=== PATIENT | female | born 1955 | race Caucasian/White ===

== ENCOUNTER 2017-07-21 21:48 | Emergency (ER) | payer MEDICAID ==
[~2017-07-21] VITALS: Ht 167.6 cm; Wt 77.1 kg
[~2017-07-21 21:48] MED LIST: CIPRO 500MG TA500 MG PO; DIAZEPAM10 MG PO; EFFEXOR XR150 MG PO; LISINOPRIL 10MG10 MG NG; OXAZEPAM 10MG C10 M1 PO; PYRIDIUM 200MG200 MG PO; SEPTRA DS 800 M1 TAB PO; VISTARIL25 M1 PO
[2017-07-21] MEDS ORDERED: ASPIRIN81 MG PO (22:13)
[2017-07-21] MEDS ORDERED: D3-55000 IU PO (22:13)
[2017-07-21] MEDS ORDERED: BUPROPION HCL150 M1 PO (22:14)
[2017-07-21] MEDS ORDERED: DALIRESP500 MCG PO (22:14)
[2017-07-21] MEDS ORDERED: GABAPENTIN300 M1 PO (22:15)
[2017-07-21] MEDS ORDERED: VENTOLIN H0.09 MG/Ac IH (22:15)
[2017-07-21] MEDS ORDERED: BREO ELLIPTA1 POW IH (22:16)
[2017-07-21] MEDS ORDERED: LISINOPRIL10 MG PO (22:16)
[2017-07-21] MEDS ORDERED: SPIRIVA RE2.5 MCG/Ac IH (22:16)
[2017-07-21] MEDS ORDERED: LEVOTHYROXINE0.05 M2 PO (22:17)
[2017-07-21] MEDS ORDERED: DULOXETINE HYDR30 MG PO (22:17)
[2017-07-21] MEDS ORDERED: INDERAL 40MG. T40 MG PO (22:18)
[2017-07-21] MEDS ORDERED: QUETIAPINE FUMA25 M1 PO (22:18)
--- OUTSIDE RECORDS SUMMARY | 2017-07-21 22:22 | External Medical Summary Rpt | CCD ---
Author Author , VALENTIN Organization [facility] Address Unknown Phone Care Team Providers Care Watch Supervisor Name Role Phone SALINAS JAQUAN, SALINAS Unavailable Unavailable JAQUAN SALINAS JAQUAN, SALINAS Unavailable Unavailable JAQUAN [facility] JULIANN MELODY, Unavailable Unavailable JULIANN MELODY ATKINS TRA, ATKINS Unavailable Unavailable TRA ATKINS TRA, ATKINS Unavailable Unavailable TRA [facility] Unavailable Unavailable [facility] TRACI, TRACI Unavailable Unavailable BRANDSER XAVIER, Unavailable Unavailable BRANDSER XAVIER DMITRY MOH, DMITRY MOH Unavailable Unavailable SMITH, SMITH Unavailable Unavailable SMITH BETSY, Unavailable Unavailable SMITH BETSY BUDHANI, BUDHANI Unavailable Unavailable BUDHANI [facility], BUDHANI Unavailable Unavailable IRF KATHERYN DEL, Unavailable Unavailable KATHERYN DEL [facility]available [facility]available [facility] Unavailable Unavailable [facility] JUSTUS J G, JUSTUS J Unavailable Unavailable G JUSTUS J G, JUSTUS J Unavailable Unavailable G JUSTUS SHIRLEY, JUSTUS Unavailable Unavailable SHIRLEY BRE MADI, Unavailable Unavailable BRE MADI BHANU MAT, Unavailable Unavailable BHANU MAT LATA ISABEL, LATA Unavailable Unavailable ISABEL BENSON LATIA, Unavailable Unavailable BENSON LATIA WENDY KEVIN, WENDY KEVIN Unavailable Unavailable [facility] [place] Un[facility] ANNA MELVIN, ANNA Unavailable Unavailable MELVIN FERTIKH CHER, FERTIKH Unavailable Unavailable CHER MARIA FERNANDA DENISA, MARIA FERNANDA Unavailable Unavailable DENISA MARIA FERNANDA DENISA, MARIA FERNANDA Unavailable Unavailable DENISA RADHA LY MD, Unavailable Unavailable ALIYAH NAGEL MD Unavailable Unavailable [facility] Unavailable [facility], [facility] XIOMARA BOZENA, Unavailable Unavailable XIOMARA BOZENA [facility] Unavailable Unavailable [facility], [facility] SIGIFREDO NGUYEN, OD, Unavailable Unavailable [facility], [facility] NGUYEN, OD, PSC LINSEY MAR, LINSEY Unavailable Unavailable MAR KEAGLE RIT, KEAGLE Unavailable Unavailable RIT KEAGLE RIT, KEAGLE Unavailable Unavailable RIT MERLIN, MERLIN Unavailable Unavailable MERLIN CHR, MERLIN [facility]available Unavailable [facility]available [facility] KERSCHNER MAG, Unavailable Unavailable KERSCHNER MAG KLEIMEYER, KLEIMEYER Unavailable Unavailable KUPER REDD, KUPER REDD Unavailable Unavailable KUPER REDD, KUPER REDD Unavailable Unavailable [facility] Unavailable Unavailable [facility] Unavailable Un[facility] Unavailable Unavailable 9, [facility] LUKING DELFIN, LUKING Unavailable Unavailable DELFIN LUKING DELFIN, LUKING Unavailable Unavailable DELFIN EDGARD MELODY, EDGARD Unavailable Unavailable MELODY EDGARD MELODY, EDGARD Unavailable Unavailable MELODY ERIKA LANE, ERIKA ARIANA Unavailable Unavailable MADIE ROMANO MD, Unavailable Unavailable MADIE ROMANO MD, Unavailable Unavailable MADIE ROMANO MD MONTES DE OCA JR ELIO, MONTES DE OCA Unavailable Unavailable JR ELIO JERMAIN GAR, Unavailable Unavailable JERMAIN GAR DEENA, DEENA Unavailable Unavailable DEENA ALLISON, DEENA Unavailable Unavailable ALLISON DEENA ALLISON, DEENA Unavailable Unavailable ALLISON JUANI WESLEY, Unavailable Unavailable JUANI WESLEY [facility], Unavailable Unavailable JM R H JM R [facility], Unavailable Unavailable JM R H NOTA, NOTA Unavailable Unavailable CASTRO ABELARDO ELIDA, Unavailable Unavailable [facility] Un[facility] PETTEY JAM, PETTEY Unavailable Unavailable JAM PETTEY JAM, PETTEY Unavailable Unavailable JAM [facility], Unavailable Unavailable [facility], Unavailable Unavailable [facility] Unavailable [facility] DAVIN CHR, Unavailable Unavailable DAVIN CHR MARIA A CHAVA, Unavailable Unavailable MARIA A CHAVA MARIA A CHAVA, Unavailable Unavailable MARIA A CHAVA ROEBKER JAM, ROEBKER Unavailable Unavailable JAM COLIN MAR, COLIN Unavailable Unavailable MAR SCALF LEI, SCALF LEI Unavailable Unavailable SCALF LEI, SCALF LEI Unavailable Unavailable SCHACK ORTIZ, SCHACK Unavailable Unavailable ORTIZ SCHMITTER SAMUEL, Unavailable Unavailable SCHMITTER SAMUEL THORNTON ALONZO, Unavailable Unavailable THORNTON ALONZO THORNTON ALONZO, Unavailable Unavailable THORNTON ALONZO KHAN CHR, KHAN CHR Unavailable Unavailable KHAN SHA, KHAN SHA Unavailable Unavailable [facility] Un[facility] Un[facility], [facility]available [facility] Unavailable Unavailable MULTIMEDIA AUTHOR ST, [facility]IA AUTHOR [facility] Unavailable Unavailable [facility]ENTER, [facility] Unavailable Unavailable [facility], [facility] LIONEL DAM, LIONEL Unavailable Unavailable DAM LESLIE DANNA, LESLIE Unavailable Unavailable DANNA SONALI LUCÍA, SONALI Unavailable Unavailable LUCÍA VASQUEZ, Unavailable Unavailable WILLEL VASQUEZ Purpose Continuity of Care Document - 12-26-2011 through 2016 Problems Code Diagnosis DOS Provider Status E039 HYPOTHYROID 06-10-2017 ISM [facility] UNSPECIFIED PHYSICIANS G250 ESSENTIAL 06-10-2017 TREMOR [facility] PH[facility] I10 ESSENTIAL 06-10-2017 PRIMARY [facility] HYPERTENSIO PHYSICIANS N J441 CHRONIC 06-10-2017 OBSTRUCTIVE [facility] PULMONARY PHYSICIANS DZ W/EXACERBAT ION Z6829 BODY MASS 06-10-2017 INDEX BMI [facility]ATA 29.0-29.9 PHYSICIANS ADULT E038 OTHER 05-04-2017 SPECIFIED [facility] HYPOTHYROID HEALTHCARE IS [facility] M8580 OTH SPEC 03-17-2017 D/O BONE [facility] DENSITY [facility]ALTHCARE STRUCTURE [facility] SITE D80764 OTHER LONG 03-17-2017 TERM [facility] CURRENT HEALTHCARE DRUG [facility] THERAPY J410 SIMPLE 01-19-2017 CHRONIC [facility] BRONCHITIS MED CTR C23652 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-19-2017 PAYROLL TECHNICIAN EXAM [facility] GENERAL RTN MED CTR W/O ABNORMAL FIND Z122 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-19-2017 [facility]I [facility] NEOPLASM RESPIR ORGANS Z1231 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-19-2017 SCREENING [facility] MAMMO MALIG FT ROB NEOPLASM BREAST E210 PRIMARY 12-25-2016 HYPERPARATH [facility] YROIDISM FT ROB B09249 OTH SPEC 12-25-2016 RADIOLOGY D/O BONE ASSOCIATES DENSITY OF NOT STRUCTURE RT THIGH E559 VITAMIN D 10-22-2016 ST DEFICIENCY [facility] UNSPECIFIED [facility]ALTH[facility]ARE [facility] R7303 PREDIABETES 10-22-2016 [facility] Z124 ENCOUNTER 10-22-2016 ST OTHER [facility] SCREENING HEALTHCARE MALIG EDGE NEOPLASM CERVIX Z31653 ENCOUNTER 10-22-2016 ST FOR [facility] SCREENING HEALTHCARE FOR LIPOID EDGE DISORDERS H6982 OTHER SPEC 10-01-2016 ST DISORDERS [facility] EUSTACHIAN PHYSICIANS TUBE LT EAR L309 DERMATITIS 10-01-2016 ST UNSPECIFIED [facility] PHYSICIANS Z6830 BODY MASS 10-01-2016 ST INDEX BMI MATA 30.0-30.9 PHYSICIANS ADULT B9689 OTH SPEC 09-01-2016 BACTERIAL [facility] AGNT CAUSE PHYSICIANS DZ CLASSIFIED ELSW J0190 ACUTE 09-01-2016 SINUSITIS [facility] UNSPECIFIED PHYSICIANS L719 ROSACEA 07-02-2016 ST UNSPECIFIED [facility] PHYSICIANS R73.03 Prediabetes 05-12-2016 N390 URINARY 04-17-2016 ST TRACT [facility] INFECTION PHYSICIANS SITE NOT SPECIFIED C50995 OTHER 04-17-2016 ST SPECIFIED [facility] URINARY PHYSICIANS INCONTINENC E R3915 URGENCY OF 04-17-2016 ST URINATION [facility] PHYSICIANS Z6832 BODY MASS 04-17-2016 ST INDEX BMI MATA 32.0-32.9 PHYSICIANS ADULT J8410 PULMONARY 02-22-2016 ST FIBROSIS [facility] UNSPECIFIED [facility]ALTHCARE [facility] R911 SOLITARY 02-22-2016 [facility] PULMONARY [facility] NODULE OF NOT Z9049 ACQUIRED 02-22-2016 ST ABSENCE OTH [facility] SPEC PARTS HEALTHCARE DIGESTIVE ED[facility] TRACT Z6833 BODY MASS 02-06-2016 ST INDEX BMI MATA 33.0-33.9 PHYSICIANS ADULT M549 DORSALGIA 01-21-2016 ST UNSPECIFIED [facility] PHYSICIANS R300 DYSURIA 01-21-2016 ST [facility] PHYSICIANS R319 HEMATURIA 01-21-2016 RADIOLOGY UNSPECIFIED ASSOCIATES OF NOT H56814 ACQUIRED 01-21-2016 ST ABSENCE OF M[facility] BOTH CERVIX FT ROB AND UTERUS J020 STREPTOCOCC 10-04-2015 ST AL [facility] PHARYNGITIS PHYSICIANS J029 ACUTE 10-04-2015 ST PHARYNGITIS [facility] PHYSICIANS UNSPECIFIED A499 BACTERIAL 08-14-2015 ST INFECTION [facility] UNSPECIFIED PHYSICIANS L989 DISORDER 08-14-2015 ST THE SKIN & MATA SUBCUTANEOU PHYSICIANS S TISSUE UNS N760 ACUTE 08-14-2015 ST VAGINITIS [facility] PHYSICIANS R69 ILLNESS 06-12-2015 [facility] CAC UNSPECIFIED INC REGION 9 E119 TYPE 2 06-10-2015 PERSONAL DIABETES TOUCH HOME MELLITUS CARE OF WITHOUT COMPLICATIO NS G729 MYOPATHY 06-10-2015 PERSONAL UNSPECIFIED TOUCH HOME CARE OF J449 CHRONIC 06-10-2015 PERSONAL OBSTRUCTIVE TOUCH HOME PULMONARY CARE OF DISEASE UNS R269 UNSPECIFIED 06-10-2015 PERSONAL TOUCH HOME ABNORMALITI CARE OF ES OF GAIT AND MOBILITY Z5189 ENCOUNTER 06-10-2015 PERSONAL FOR OTHER TOUCH HOME SPECIFIED CARE OF AFTERCARE D485 NEOPLASM OF 05-23-2015 [facility] TRA UNCERTAIN BEHAVIOR OF SKIN L089 LOCAL INF 05-23-2015 [facility] SUBCUTANEOU S TISSUE UNS L281 PRURIGO 05-23-2015 [facility] TRA NODULARIS L298 OTHER 05-23-2015 [facility] TRA PRURITUS L689 HYPERTRICHO 05-23-2015 [facility] TRA SIS UNSPECIFIED L821 OTHER 05-23-2015 SCALF LEI SEBORRHEIC KERATOSIS L853 XEROSIS 05-23-2015 [facility] TRA CUTIS 4910 SIMPLE 05-07-2015 CHRONIC [facility] BRONCHITIS PHYSICIANS 13037 ESOPHAGEAL 05-07-2015 ST REFLUX [facility] PHYSICIANS 5849 ACUTE 05-07-2015 ST KIDNEY [facility] FAILURE PHYSICIANS UNSPECIFIED 79761 OTHER 05-07-2015 ABNORMAL [facility] GLUCOSE PHYSICIANS 73757 DIAB W/O 05-05-2015 PERSONAL COMP TYPE TOUCH HOME II/UNS NOT CARE OF STATED UNCNTRL 3599 UNSPECIFIED 05-05-2015 PERSONAL MYOPATHY TOUCH HOME CARE OF 4019 UNSPECIFIED 05-05-2015 PERSONAL ESSENTIAL TOUCH HOME HYPERTENSIO CARE OF N 496 CHRONIC 05-05-2015 PERSONAL AIRWAY TOUCH HOME OBSTRUCTION CARE OF NEC 7812 ABNORMALITY 05-05-2015 PERSONAL OF GAIT TOUCH HOME CARE OF V571 OTHER 05-05-2015 PERSONAL [place] [address] OBSTRUCTIVE 05-01-2015 INTERNAL CHRONIC MEDICINE OF BRONCHITIS [place]ACERBATIO N 89857 SLOW 05-01-2015 INTERNAL TRANSIT MEDICINE OF [facility] N 2449 UNSPECIFIED 04-24-2015 ST [place] HYPOTHYROID PHYSICIANS ISM 47339 ACUTE 04-24-2015 ST BRONCHIOLIT MATA IS DUE OTH PHYSICIANS INFECTIOUS ORGANISMS 66241 CHEST PAIN 04-23-2015 [facility] UNSPECIFIED [facility] 58596 OTHER CHEST 04-23-2015 ST PAIN [facility] PHYSICIANS I10 Essential 04-22-2015 (primary) hypertensio n E03.8 Other 04-18-2015 specified hypothyroid ism 29695 LEUKOCYTOSI 04-18-2015 ST S [facility] UNSPECIFIED MED CTR MULTIMEDIA AUTHOR ST 4139 OTHER AND 04-18-2015 ST UNSPECIFIED [facility] ANGINA MED CTR MULTIMEDIA AUTHOR [address] [address] 69894 JAW PAIN 04-18-2015 ST [facility] [place] [facility] 78807 SHORTNESS 04-18-2015 ST OF BREATH [facility] PHYSICIANS 08536 OTHER 04-18-2015 ST DYSPNEA [place] [address] HYPOXEMIA 04-18-2015 ST [facility] PHYSICIANS 1330 SCABIES 04-04-2015 ST [facility] PHYSICIANS 2448 OTHER 03-19-2015 ST SPECIFIED [facility] ACQUIRED MED CTR MULTIMEDIA AUTHOR HYPOTHYROID ST ISM 2468 OTHER 03-19-2015 ST SPECIFIED [facility] DISORDERS MED CTR MULTIMEDIA AUTHOR OF THYROID ST 2689 UNSPECIFIED 02-19-2015 ST VITAMIN D [facility] DEFICIENCY PHYSICIANS 4770 ALLERGIC 02-19-2015 ST RHINITIS MATA DUE TO PHYSICIANS POLLEN 490 BRONCHITIS 02-19-2015 ST NOT [facility] SPECIFIED PHYSICIANS ACUTE OR CHRONIC 7231 CERVICALGIA 12-12-2014 [facility] 7241 PAIN IN 12-12-2014 [facility] THORACIC [facility]OP[facility] SPINE C CENTER 7248 OTHER 12-12-2014 VAN SYMPTOMS CHIROPRACTI REFERABLE C CENTER TO BACK 0817 NONALLOPATH 12-12-2014 VAN IC LESION CHIROPRACTI OF CERVICAL C CENTER REGION NEC 0539 HERPES 11-24-2014 ST ZOSTER [facility] WITHOUT PHYSICIANS MENTION OF COMPLICATIO N 6829 CELLULITIS 11-24-2014 ST AND ABSCESS M[facility] OF PHYSICIANS UNSPECIFIED SITE V4981 ASYMPTOMATI 10-20-2014 RADIOLOGY C [facility]OC[facility]ATES [facility] TIARA STATUS 4739 UNSPECIFIED 10-09-2014 ST SINUSITIS [facility] PHYSICIANS 5990 URINARY 10-09-2014 ST TRACT [facility] INFECTION PHYSICIANS SITE NOT SPECIFIED E55.9 Vitamin D 09-26-2014 deficiency, unspecified 24267 OBESITY, 09-22-2014 ST UNSPECIFIED [facility] MED CTR MULTIMEDIA AUTHOR ST 3331 ESSENTIAL 09-22-2014 ST AND OTHER [facility] SPECIFIED PHYSICIANS FORMS OF [place] 7802 SYNCOPE AND 09-22-2014 ST COLLAPSE [facility] PHYSICIANS V700 ROUTINE 09-22-2014 GENERAL [facility] MEDICAL PHYSICIANS EXAM@HEALTH CARE FACL 75941 OTHER 09-20-2014 ST SPECIFIED [facility] CARDIAC PHYSICIANS DYSRHYTHMIA S 7245 UNSPECIFIED 09-20-2014 ST BACKACHE [facility] PHYSICIANS G89.29 Other 09-18-2014 chronic pain J41.0 Simple 09-18-2014 chronic bronchitis J43.9 Emphysema, 09-18-2014 unspecified J44.1 Chronic 09-18-2014 obstructive pulmonary disease with (acute) exacerbatio n M54.5 Low back 09-18-2014 pain 46766 OTHER 09-17-2014 ST CHRONIC [facility] PAIN MED [place] 10443 OTHER 09-17-2014 [place] [facility] [place] [address] PRECORDIAL 09-17-2014 ST PAIN [facility] MED CTR MULTIMEDIA AUTHOR ST F41.8 Other 09-15-2014 specified anxiety disorders G25.0 Essential 09-15-2014 tremor 27359 PAIN IN 09-07-2014 [facility], PAIN & LOWER LEG SPINE INSTIT 7202 SACROILIITI 08-30-2014 [facility] S NOT PAIN & ELSEWHERE SPINE CLASSIFIED INSTIT 7213 LUMBOSACRAL 08-22-2014 [facility] & SPONDYLOSIS SPINE WITHOUT INSTIT MYELOPATHY 7210 CERVICAL 07-25-2014 [facility] SPONDYLOSIS PAIN & WITHOUT SPINE MYELOPATHY INSTIT 7244 THORACIC/EBER 07-14-2014 [facility] MBOSACRAL [facility] NEURITIS/RA C CENTER DICULITIS UNSPEC 7282 MUSCULAR 07-14-2014 [facility] DISUSE C CENTER ATROPHY NEC 8460 SPRAIN AND 07-14-2014 [facility] STRAIN OF CHIROPRACTI LUMBOSACRAL C CENTER 8470 NECK SPRAIN 07-14-2014 [facility]OPRA[facility] C CENTER 4589 UNSPECIFIED 07-13-2014 [facility] HYPOTENSION 6256 FEMALE 07-13-2014 RADHA LY MD INCONTINENC E 6272 SYMPTOMATIC 07-13-2014 RADHA LY MD MENOPAUSAL/ FEMALE CLIMACTERIC STATES 48569 OTHER 07-13-2014 [place] SPECIFIED MEDICAL DISORDERS IMAGING ASS OF LOWER LEG JOINT V0481 NEED 07-13-2014 [facility] PROPHYLACTI [facility] C VACCINATION &INOCULATIO N FLU 4660 ACUTE 06-20-2014 [facility] BRONCHITIS [facility] 6273 POSTMENOPAU 06-15-2014 RADHA Dillon TIARA ALIYAH ABDUL ATROPHIC VAGINITIS V7231 ROUTINE 06-15-2014 RADHA Dillon GYNECOLOGIC ALIYAH ABDUL AL EXAMINATION V7641 SCREENING 06-15-2014 RADHA LY MD MALIGNANT NEOPLASM OF THE RECTUM 30852 PREPATELLAR 04-28-2014 [facility] BURSITIS [facility] 7810 ABNORMAL 04-28-2014 [facility] INVOLUNTARY [facility] MOVEMENTS 37295 OTHER 04-20-2014 [facility] SPECIFIED ASSOCIATES TYPES OF CYSTITIS 1122 CANDIDIASIS 04-14-2014 [facility] RIT OF OTHER UROGENITAL SITES 7881 DYSURIA 04-14-2014 [facility] 0088 INTESTINAL 10-19-2013 [facility] INFECTION DUE TO OTHER ORGANISM NEC 51152 VERTIGO 10-19-2013 [facility] LATE EFFECT CEREBROVASC ULAR DISEASE 463 ACUTE 10-07-2013 JUSTUS Godwin TONSILLITIS 39089 MASTODYNIA 09-22-2013 MARIA A CHAVA 80660 LUMP OR 09-22-2013 ST MASS IN [facility] BREAST MED CTR MULTIMEDIA AUTHOR ST 7822 LOCALIZED 09-22-2013 ST SUPERFICIAL [facility] SWELLING MED CTR MULTIMEDIA AUTHOR MASS OR ST [facility] 12657 INCONCLUSIV 09-22-2013 ST E MAMMOGRAM [facility] CTR MULTIMEDIA AUTHOR ST 7242 LUMBAGO 09-20-2013 [facility] 460 ACUTE 07-01-2013 [facility] NASOPHARYNG [facility] ITIS 4400 ATHEROSCLER 06-11-2013 BRE OSIS OF MADI AORTA 7218 OTHER 06-11-2013 BRE ALLIED MADI DISORDERS OF SPINE 01283 OSTEOARTHRO 12-23-2012 PETTEY JAM SIS UNSPEC WHETHER GEN/LOC LOWER LEG 7177 CHONDROMALA 11-30-2012 PETTEY JAM DIXON OF [place] 08905 PLICA 11-30-2012 PETTEY JAM SYNDROME 89062 AFTER-CATAR 11-22-2012 THORNTON ACT, ALONZO OBSCURING VISION 20937 DISORDER OF 11-03-2012 [facility] CARTILAGE [facility] UNSPECIFIED CENTER 3674 PRESBYOPIA 10-05-2012 SIGIFREDO NGUYEN, OD, PSC 5952 OTHER 10-05-2012 SALINAS JAQUAN CHRONIC CYSTITIS 5989 UNSPECIFIED 10-05-2012 SALINAS JAQUAN URETHRAL STRICTURE 21650 UNSPECIFIED 09-14-2012 [facility] 4619 ACUTE 09-07-2012 JM R SINUSITIS, H UNSPECIFIED 94527 UNSPECIFIED 05-14-2012 MADIE [place] N 59722 DYSPHAGIA 05-14-2012 MADIE UNSPECIFIED ROSALINA ABDUL 73452 ABDOMINAL 05-14-2012 MADIE PAIN OTHER ROSALINA ABDUL SPECIFIED SITE V1272 PERSONAL 04-18-2012 MADIE HISTORY OF ROSALINA ABDUL COLONIC POLYPS 57524 OTHER 04-17-2012 MADIE ESOPHAGITIS ROSALINA ABDUL 69640 OTHER SPEC 04-17-2012 MADIE GASTRITIS ROSALINA ABDUL WITHOUT MENTION HEMORRHAGE 5589 OTH&UNSPEC 04-17-2012 MADIE NONINFECTIO ROSALINA ABDUL US GASTROENTER ITIS&COLITI S 82575 UNSPECIFIED 04-16-2012 [facility] ESOPHAGITIS [facility] 97226 UNS 04-16-2012 GASTRITIS&G LOCH [place] ASTRODUODIT [facility] IS W/O CENTER MENTION HEMORR 45978 DIVERTICULO 04-16-2012 [facility] COLON [facility] 5641 IRRITABLE 04-16-2012 [facility]OWEL [facility] [place] SYNDROME [facility] 67303 LOSS OF 04-16-2012 KUPER REDD WEIGHT 86958 ABDOMINAL 04-16-2012 KUPER REDD PAIN, UNSPECIFIED SITE 5601 PARALYTIC 04-15-2012 DEENA ALLISON ILEUS 6259 UNSPEC 04-15-2012 DEENA ALLISON SYMPTOM ASSOC W/FEMALE GENITAL ORGANS 03549 ABDOMINAL 04-15-2012 DEENA COOPER PAIN, GENERALIZED 5959 UNSPECIFIED 12-26-2011 MARIA FERNANDA DENISA CYSTITIS 79331 NONSPECIFIC 12-26-2011 MARIA FERNANDA DENISA ABNORMAL ELECTROCARD IOGRAM B96.89 Other specified bacterial agents as the cause of diseases classified elsewhere D22.9 Melanocytic nevi, unspecified E21.0 Primary hyperparath yroidism J01.90 Acute sinusitis, unspecified J44.9 Chronic obstructive pulmonary disease, unspecified L71.9 Rosacea, unspecified L82.1 Other seborrheic keratosis M85.80 Other specified disorders of bone density and structure, unspecified site N39.0 Urinary tract infection, site not specified N39.498 Other specified urinary incontinenc e R13.10 Dysphagia, unspecified R39.15 Urgency of urination Z01.419 Encounter for gynecologic al examination (general) (routine) without abnormal findings Z12.31 Encounter for screening mammogram for malignant neoplasm of breast Z87.19 Personal history of other diseases of the digestive system Allergies, Adverse Reactions, Alerts Clinical Alert Notifications Alert Diabetes: no A1C in the last 6 months Diabetes: no eye exam in the last 365 days Diabetes: no influenza vaccine in the last 365 days Diabetes: no urine protein screening in the last 365 days Medications Na ND Rx Da Fi Fi Am Da Di Ph RX Ph St me C No te ll ll ou ys ag ar # ys at rm s nt no ma ic us Or Da si cy ia de te s n re d AZ 50 11 12 6. 5 00 TO Ac IT 11 -0 -0 00 00 TA ti HR 10 1- 8- 0 00 L ve OM 78 20 20 96 CA YC 75 17 17 70 RE IN 1 90 PH 25 AR 0 MA MG CY TA #5 BL ET MD 23 11 12 60 30 00 TO Ac OP 15 -0 -0 .0 00 TA ti RA 50 1- 8- 00 00 L ve NO 11 20 20 96 CA LO 20 17 17 70 RE L 1 91 40 PH AR MG MA CY TA BL #5 ET 00 11 12 30 30 00 TO Ac PI 90 -0 -0 .0 00 TA ti RI 46 2- 8- 00 00 L ve N 28 20 20 94 CA 81 88 17 17 46 RE 9 10 MG PH AR CH MA EW CY AB LE #5 TA BL ET BU 00 10 12 30 30 00 TO Ac MD 59 -2 -0 .0 00 TA ti OP 13 7- 1- 00 00 L ve IO 54 20 20 95 CA N 12 17 17 62 RE HC 5 16 L PH SR AR MA 15 CY 0 MG #5 TA BL ET LI 00 10 12 30 30 00 TO Ac SI 18 -2 -0 .0 00 TA ti NO 50 7- 1- 00 00 L ve MD 61 20 20 96 CA IL 01 17 17 66 RE 0 12 10 PH AR MG MA CY TA BL #5 ET 00 10 11 30 30 00 TO PI 90 -0 -1 .0 00 TA ti RI 46 3- 0- 00 00 L ve N 28 20 20 94 CA 81 88 17 17 46 RE 9 10 MG PH AR CH MA EW CY AB LE #5 TA BL ET LE 00 10 11 30 30 00 TO VO 37 -1 -1 .0 00 TA ti TH 81 9- 0- 00 00 L ve YR 80 20 20 96 CA OX 31 17 17 58 RE IN 0 19 E PH 50 AR MA MC CY G TA #5 BL ET DU 31 10 11 30 30 00 TO LO 72 -1 -1 .0 00 TA ti XE 20 6- 0- 00 00 L ve TI 58 20 20 96 CA NE 23 17 17 22 RE 0 93 HC PH L AR [address] MA CY 30 #5 MG CA P 00 10 11 30 30 00 TO TA 90 -1 -1 .0 00 TA ti MA 45 0- 0- 00 00 L ve N 98 20 20 95 CA D3 66 17 17 84 RE 0 19 5, PH 00 AR 0 MA UN CY IT #5 CA PS UL E DA 00 10 11 30 30 00 TO LI 31 -0 -1 .0 00 TA ti RE 00 6- 0- 00 00 L ve SP 09 20 20 96 CA 53 17 17 45 RE 50 0 50 0 PH MC AR G MA TA CY BL ET #5 LI 00 09 10 30 30 00 TO SI 37 -2 -2 .0 00 TA ti NO 82 6- 0- 00 00 L ve MD 07 20 20 94 CA IL 41 17 17 46 RE 0 09 10 PH AR MG MA CY TA BL #5 ET BU 00 09 10 30 30 00 TO MD 18 -2 -2 .0 00 TA ti OP 50 7- 0- 00 00 L ve IO 41 20 20 95 CA N 55 17 17 62 RE HC 2 16 L PH SR AR MA 15 CY 0 MG #5 TA BL ET FL 70 09 10 0. 1 00 TO UC 46 -1 -1 50 00 TA ti EL 10 9- 3- 0 00 L ve VA 20 20 20 96 CA X 10 17 17 26 RE QU 1 00 AD PH AR 20 MA 17 CY -2 01 #5 8 SY R CONCEPCION 58 09 10 0. 1 00 TO OS 16 -1 -1 50 00 TA ti TR 00 9- 3- 0 00 L ve IX 84 20 20 96 CA 25 17 17 26 RE TD 2 05 AP PH AR VA MA CC CY IN E #5 SY RI NG E 00 09 10 30 30 00 TO Ac TA 90 -1 -0 .0 00 TA ti MA 45 1- 6- 00 00 L ve N 98 20 20 95 CA D3 66 17 17 84 RE 0 19 5, PH 00 AR 0 MA UN CY IT #5 CA PS UL E AZ 50 09 10 6. 5 00 TO Ac IT 11 -1 -0 00 00 TA ti HR 10 3- 6- 0 00 L ve OM 78 20 20 96 CA YC 75 17 17 19 RE IN 1 96 PH 25 AR 0 MA MG CY TA #5 BL ET LE 00 09 10 30 30 00 TO VO 37 -1 -0 .0 00 TA ti TH 81 5- 6- 00 00 L ve YR 80 20 20 96 CA OX 31 17 17 23 RE IN 0 41 E PH 50 AR MA MC CY G TA #5 BL ET DU 51 09 10 30 30 00 TO LO 99 -1 -0 .0 00 TA ti XE 10 5- 6- 00 00 L ve TI 74 20 20 96 CA NE 71 17 17 22 RE 0 [address] HC PH L AR [address] MA CY 30 #5 MG CA P MD 23 09 10 60 30 00 TO OP 15 -1 -0 .0 00 TA ti RA 50 5- 6- 00 00 L ve NO 11 20 20 95 CA LO 10 17 17 64 RE L 1 63 20 PH AR MG MA CY TA BL #5 ET DA 00 09 09 30 30 00 TO Ac LI 31 -0 -2 .0 00 TA ti RE 00 7- 9- 00 00 L ve SP 09 20 20 95 CA 53 17 17 84 RE 50 0 20 0 PH MC AR G MA TA CY BL ET #5 LI 00 08 09 30 30 00 TO Ac SI 37 -2 -2 .0 00 TA ti NO 82 8- 2- 00 00 L ve MD 07 20 20 94 CA IL 41 17 17 46 RE 0 09 10 PH AR MG MA CY TA BL #5 ET 00 08 09 30 30 00 TO Ac PI 90 -2 -2 .0 00 TA ti RI 46 9- 2- 00 00 L ve N 28 20 20 94 CA 81 88 17 17 46 RE 9 10 MG PH AR CH MA EW CY AB LE #5 TA BL ET BU 00 03 18 30 30 00 TO Ac MD 18 -2 -1 .0 00 TA ti OP 50 4- 5- 00 00 L ve IO 41 20 20 95 CA N 55 17 17 62 RE HC 2 16 L PH SR AR MA 15 CY 0 MG #5 TA BL ET FL 50 03 18 30 30 00 TO Ac UO 11 -1 -0 .0 00 TA ti XE 10 4- 8- 00 00 L ve TI 64 20 20 95 CA NE 80 17 17 62 RE 3 18 HC PH L AR 20 MA CY MG #5 CA PS UL E 00 03 18 30 30 00 TO Ac TA 90 -0 -0 .0 00 TA ti MA 45 9- 1- 00 00 L ve N 98 20 20 95 CA D3 66 17 17 84 RE 0 19 5, PH 00 AR 0 MA UN CY IT #5 CA PS UL E LE 00 03 18 30 30 00 TO VO 37 -1 -0 .0 00 TA ti TH 81 1- 1- 00 00 L ve YR 80 20 20 95 CA OX 31 17 17 87 RE IN 0 90 E PH 50 AR MA MC CY G TA #5 BL ET DA 00 03 18 30 30 00 TO LI 31 -0 -0 .0 00 TA ti RE 00 9- 1- 00 00 L ve SP 09 20 20 95 CA 53 17 17 84 RE 50 0 20 0 PH MC AR G MA TA CY BL ET #5 QU 16 02 14 30 30 00 TO ET 71 -1 -1 .0 00 TA ti IA 40 7- 8- 00 00 L ve PI 45 20 20 95 CA NE 20 17 17 62 RE 1 17 FU PH MA AR RA MA TE CY 25 #5 MG TA B FL 50 02 14 30 30 00 TO Ac UO 11 -1 -1 .0 00 TA ti XE 10 7- 8- 00 00 L ve TI 64 20 20 95 CA NE 80 17 17 62 RE 3 18 HC PH L AR 20 MA CY MG #5 CA PS UL E LI 00 02 14 30 30 00 TO Ac SI 18 -1 -1 .0 00 TA ti NO 50 9- 8- 00 00 L ve MD 61 20 20 94 CA IL 01 17 17 46 RE 0 09 10 PH AR MG MA CY TA BL #5 ET BU 60 07 08 60 30 00 TO Ac MD 50 -1 -1 .0 00 TA ti OP 50 9- 8- 00 00 L ve IO 15 20 20 94 CA N 70 17 17 75 RE HC 1 75 L PH 10 AR 0 MA MG CY TA #5 BL ET MD 00 07 08 60 30 00 TO Ac OP 37 -1 -1 .0 00 TA ti RA 80 9- 8- 00 00 L ve NO 18 20 20 95 CA LO 30 17 17 64 RE L 1 63 20 PH AR MG MA CY TA BL #5 ET 00 08 30 30 00 TO Ac PI 90 -1 -0 .0 00 TA ti RI 46 0- 4- 00 00 L ve N 28 20 20 94 CA 81 88 17 17 46 RE 9 10 MG PH AR CH MA EW CY AB LE #5 TA BL ET LE 00 07 08 30 30 00 TO Ac VO 37 -1 -0 .0 00 TA ti TH 81 0- 4- 00 00 L ve YR 80 20 20 95 CA OX 31 17 17 56 RE IN 0 50 E PH 50 AR MA MC CY G TA #5 BL ET DU 51 07 30 30 00 TO Ac LO 99 -0 -2 .0 00 TA ti XE 10 6- 8- 00 00 L ve TI 74 20 20 93 CA NE 69 17 17 19 RE 0 86 HC PH L AR [address] MA CY 20 #5 MG CA P DA 00 02 13 30 30 00 TO Ac LI 31 -0 -2 .0 00 TA ti RE 00 6- 8- 00 00 L ve SP 09 20 20 95 CA 53 17 17 25 RE 50 0 71 0 PH MC AR G MA TA CY BL ET #5 00 01 14 30 30 00 TO Ac TA 90 -1 -1 .0 00 TA ti MA 45 9- 4- 00 00 L ve N 98 20 20 94 CA D3 66 17 17 37 RE 0 41 5, PH 00 AR 0 MA UN CY IT #5 CA PS UL E BU 60 01 14 60 30 00 TO Ac MD 50 -1 -1 .0 00 TA ti OP 50 9- 4- 00 00 L ve IO 15 20 20 94 CA N 70 17 17 75 RE HC 1 75 L PH 10 AR 0 MA MG CY TA #5 BL ET LI 00 01 14 30 30 00 TO Ac SI 18 -2 -1 .0 00 TA ti NO 50 2- 4- 00 00 L ve MD 61 20 20 94 CA IL 01 17 17 46 RE 0 09 10 PH AR MG MA CY TA BL #5 ET DA 00 01 14 30 30 00 TO Ac LI 31 -0 -0 .0 00 TA ti RE 00 7- 7- 00 00 L ve SP 09 20 20 95 CA 53 17 17 25 RE 50 0 71 0 PH MC AR G MA TA CY BL ET #5 DU 51 01 14 30 30 00 TO LO 99 -0 -0 .0 00 TA ti XE 10 6- 7- 00 00 L ve TI 74 20 20 93 CA NE 69 17 17 19 RE 0 [address] HC PH L AR [address] MA CY 20 #5 MG CA P 00 01 14 30 30 00 TO Ac PI 90 -1 -0 .0 00 TA ti RI 46 2- 7- 00 00 L ve N 28 20 20 94 CA 81 88 17 17 46 RE 9 10 MG PH AR CH MA EW CY AB LE #5 TA BL ET LE 00 01 14 30 30 00 TO VO 37 -1 -0 .0 00 TA ti TH 81 2- 7- 00 00 L ve YR 80 20 20 95 CA OX 31 17 17 29 RE IN 0 24 E PH 50 AR MA MC CY G TA #5 BL ET AL 16 05 06 4. 28 00 TO EN 71 -2 -1 [address] 40 2- 6- 0 00 L ve ON 63 20 20 95 CA AT 30 17 17 11 RE E 1 81 SO PH DI AR UM MA CY 70 #5 MG TA B 00 12 13 30 30 00 TO TA 90 -2 -1 .0 00 TA ti MA 45 3- 6- 00 00 L ve N 98 20 20 94 CA D3 66 17 17 37 RE 0 41 5, PH 00 AR 0 MA UN CY IT #5 CA PS UL E LI 00 12 13 30 30 00 TO SI 18 -2 -1 .0 00 TA ti NO 50 3- 6- 00 00 L ve MD 61 20 20 94 CA IL 01 17 17 46 RE 0 09 10 PH AR MG MA CY TA BL #5 ET ME 23 05 60 30 00 TO Ac TF 15 -2 -1 .0 00 TA ti OR 50 4- 6- 00 00 L ve MA 10 20 20 93 CA N 21 17 17 30 RE HC 0 98 L PH 50 AR 0 MA MG CY TA #5 BL ET MD 00 05 06 60 30 00 TO Ac OP 37 -1 -0 .0 00 TA ti RA 80 5- 9- 00 00 L ve NO 18 20 20 95 CA LO 30 17 17 05 RE L 1 50 20 PH AR MG MA CY TA BL #5 ET 00 05 06 30 30 00 TO Ac PI 90 -1 -0 .0 00 TA ti RI 46 0- 2- 00 00 L ve N 28 20 20 94 CA 81 88 17 17 46 RE 9 10 MG PH AR CH MA EW CY AB LE #5 TA BL ET LE 00 05 02 06 30 00 TO Ac VO 37 -1 -0 .0 00 TA ti TH 81 0- 2- 00 00 L ve YR 80 20 20 95 CA OX 31 17 17 01 RE IN 0 38 E PH 50 AR MA MC CY G TA #5 BL ET DU 51 05 01 06 30 00 TO Ac LO 99 -0 -2 .0 00 TA ti XE 10 5- 6- 00 00 L ve TI 74 20 20 93 CA NE 69 17 17 96 RE 0 05 HC PH L AR DR MA CY 20 #5 MG CA P DA 00 05 01 06 30 00 TO Ac LI 31 -0 -2 .0 00 TA ti RE 00 5- 6- 00 00 L ve SP 09 20 20 94 CA 53 17 17 66 RE 50 0 60 0 PH MC AR G MA TA CY BL ET #5 00 04 01 06 30 00 TO Ac TA 90 -2 -1 .0 00 TA ti MA 45 5- 9- 00 00 L ve N 98 20 20 94 CA D3 66 17 17 37 RE 0 41 5, PH 00 AR 0 MA UN CY IT #5 CA PS UL E LI 00 04 01 06 30 00 TO SI 18 -2 -1 .0 00 TA ti NO 50 5- 9- 00 00 L ve MD 61 20 20 94 CA IL 01 17 17 46 RE 0 09 10 PH AR MG MA CY TA BL #5 ET GA 16 04 12 31 30 00 TO Ac BA 71 -2 -1 0. 00 TA ti PE 40 5- 9- 00 00 L ve NT 50 20 20 0 94 CA IN 40 17 17 86 RE 2 24 30 PH 0 AR MG MA CY CA PS #5 UL E DA 00 04 01 06 30 00 TO Ac LI 31 -0 -0 .0 00 TA ti RE 00 4- 5- 00 00 L ve SP 09 20 20 94 CA 53 17 17 66 RE 50 0 60 0 PH MC AR G MA TA CY BL ET #5 DU 51 04 01 06 30 00 TO Ac LO 99 -0 -0 .0 00 TA ti XE 10 4- 5- 00 00 L ve TI 74 20 20 93 CA NE 69 17 17 96 RE 0 05 HC PH L AR DR MA CY 20 #5 MG CA P LE 00 04 05 30 30 00 TO Ac VO 37 -0 -0 .0 00 TA ti TH 81 4- 5- 00 00 L ve YR 80 20 20 94 CA OX 31 17 17 66 RE IN 0 61 E PH 50 AR MA MC CY G TA #5 BL ET LI 00 03 05 30 30 00 TO Ac SI 18 -2 -0 .0 00 TA ti NO 50 7- 5- 00 00 L ve MD 61 20 20 94 CA IL 01 17 17 24 RE 0 31 10 PH AR MG MA CY TA BL #5 ET BU 00 04 05 60 30 00 TO Ac MD 78 -1 -0 .0 00 TA ti OP 11 4- 5- 00 00 L ve IO 06 20 20 94 CA N 40 17 17 75 RE HC 1 75 L PH 10 AR 0 MA MG CY TA #5 BL ET 00 04 05 30 30 00 TO Ac PI 90 -1 -0 .0 00 TA ti RI 46 1- 5- 00 00 L ve N 28 20 20 94 CA 81 88 17 17 46 RE 9 10 MG PH AR CH MA EW CY AB LE #5 TA BL ET ME 23 03 04 60 30 00 TO Ac TF 15 -2 -1 .0 00 TA ti OR 50 3- 4- 00 00 L ve MA 10 20 20 93 CA N 21 17 17 30 RE HC 0 98 L PH 50 AR 0 MA MG CY TA #5 BL ET BR 00 03 04 60 30 00 TO Ac EO 17 -1 -0 .0 00 TA ti 30 5- 7- 00 00 L ve EL 85 20 20 94 CA LI 91 17 17 46 RE PT 0 06 A PH 10 AR 0- MA 25 CY MC #5 G IN H MD 00 03 04 60 30 00 TO Ac OP 37 -1 -0 .0 00 TA ti RA 80 5- 7- 00 00 L ve NO 18 20 20 94 CA LO 30 17 17 46 RE L 1 07 20 PH AR MG MA CY TA BL #5 ET VE 00 03 04 18 25 00 TO Ac NT 17 -1 -0 .0 00 TA ti OL 30 5- 7- 00 00 L ve IN 68 20 20 94 CA 22 17 17 46 RE HF 0 08 A PH 90 AR MA MC CY G IN #5 MIRANDA LE R 00 03 04 30 30 00 TO Ac PI 90 -1 -0 .0 00 TA ti RI 46 5- 7- 00 00 L ve N 28 20 20 94 CA 81 88 17 17 46 RE 9 10 MG PH AR CH MA EW CY AB LE #5 TA BL ET MO 16 03 04 30 30 00 TO NT 72 -1 -0 .0 00 TA ti EL 90 5- 7- 00 00 L ve UK 11 20 20 94 CA 91 17 17 46 RE T 5 11 SO PH D AR 10 MA CY MG #5 TA BL ET DA 00 03 03 30 30 00 TO Ac LI 31 -0 -3 .0 00 TA ti RE 00 6- 1- 00 00 L ve SP 09 20 20 94 CA 53 17 17 06 RE 50 0 81 0 PH MC AR G MA TA CY BL ET #5 DU 13 03 03 30 30 00 TO LO 66 -0 -3 .0 00 TA ti XE 80 6- 1- 00 00 L ve TI 10 20 20 93 CA NE 96 17 17 96 RE 0 05 HC PH L AR DR MA CY 20 #5 MG CA P LE 00 03 03 30 30 00 TO VO 37 -0 -2 .0 00 TA ti TH 81 3- 4- 00 00 L ve YR 80 20 20 94 CA OX 31 17 17 33 RE IN 0 99 E PH 50 AR MA MC CY G TA #5 BL ET TR 00 02 03 80 30 00 TO IA 16 -2 -1 .0 00 TA ti MC 80 2- 7- 00 00 L ve IN 00 20 20 94 CA OL 48 17 17 23 RE ON 0 63 E PH 0. AR 1% MA CY CR EA #5 M LI 00 02 03 30 30 00 TO SI 18 -2 -1 .0 00 TA ti NO 50 3- 7- 00 00 L ve MD 61 20 20 94 CA IL 01 17 17 24 RE 0 31 10 PH AR MG MA CY TA BL #5 ET LO 16 02 03 30 30 00 TO Ac RA 71 -2 -1 .0 00 TA ti TA 40 2- 7- 00 00 L ve DI 48 20 20 94 CA NE 20 17 17 23 RE 3 62 10 PH AR MG MA CY TA BL #5 ET 00 02 03 30 30 00 TO Ac TA 90 -0 -1 .0 00 TA ti MA 45 6- 0- 00 00 L ve N 98 20 20 93 CA D3 66 17 17 48 RE 0 02 5, PH 00 AR 0 MA UN CY IT #5 CA PS UL E DA 00 02 03 30 30 00 TO Ac LI 31 -0 -1 .0 00 TA ti RE 00 6- 0- 00 00 L ve SP 09 20 20 94 CA 53 17 17 06 RE 50 0 81 0 PH MC AR G MA TA CY BL ET #5 BU 00 02 03 60 30 00 TO MD 78 -1 -1 .0 00 TA ti OP 11 3- 0- 00 00 L ve IO 06 20 20 92 CA N 40 17 17 94 RE HC 1 92 L PH 10 AR 0 MA MG CY TA #5 BL ET DO 49 02 03 30 30 00 TO XY 88 -0 -1 .0 00 TA ti CY 40 3- 0- 00 00 L ve CL 72 20 20 94 CA IN 70 17 17 05 RE E 3 68 MO PH NO AR MA 10 CY 0 MG #5 CA P DU 57 01 02 30 30 00 TO LO 23 -3 -2 .0 00 TA ti XE 70 0- 4- 00 00 L ve TI 01 20 20 93 CA NE 76 17 17 96 RE 0 05 HC PH L AR DR MA CY 20 #5 MG CA P LE 00 02 02 30 30 00 TO VO 37 -0 -2 .0 00 TA ti TH 81 1- 4- 00 00 L ve YR 80 20 20 93 CA OX 31 17 17 39 RE IN 0 53 E PH 50 AR MA MC CY G TA #5 BL ET GA 16 02 02 24 30 00 TO BA 71 -0 -2 0. 00 TA ti PE 40 1- 4- 00 00 L ve NT 50 20 20 0 94 CA IN 40 17 17 03 RE 2 29 30 PH 0 AR MG MA CY CA PS #5 UL E QU 16 01 02 30 30 00 TO ET 71 -2 -1 .0 00 TA ti IA 40 5- 7- 00 00 L ve PI 45 20 20 93 CA NE 20 17 17 96 RE 1 06 FU PH MA AR RA MA TE CY 25 #5 MG TA B MD 00 01 02 60 30 00 TO OP 37 -1 -1 .0 00 TA ti RA 80 8- 7- 00 00 L ve NO 18 20 20 92 CA LO 20 17 17 73 RE L 1 37 10 PH AR MG MA CY TA BL #5 ET ME 23 01 02 60 30 00 TO TF 15 -1 -1 .0 00 TA ti OR 50 8- 7- 00 00 L ve MA 10 20 20 93 CA N 21 17 17 30 RE HC 0 98 L PH 50 AR 0 MA MG CY TA #5 BL ET LI 00 01 02 30 30 00 TO Ac SI 18 -1 -1 .0 00 TA ti NO 50 6- 7- 00 00 L ve MD 61 20 20 93 CA IL 01 17 17 55 RE 0 02 10 PH AR MG MA CY TA BL #5 ET AM 16 01 02 20 10 00 TO Ac OX 71 -2 -1 .0 00 TA ti -C 40 3- 7- 00 00 L ve LA 47 20 20 93 CA V 80 17 17 92 RE 87 2 90 5- PH 12 AR 5 MA MG CY TA #5 BL ET STERLING 45 01 02 11 30 00 TO Ac LF 80 -2 -1 8. 00 TA ti AC 20 4- 7- 00 00 L ve ET 89 20 20 0 93 CA AM 62 17 17 94 RE ID 6 25 E PH SO AR D MA 10 CY % TO #5 P STERLING SP FL 50 01 02 16 30 00 TO Ac UT 38 -2 -1 .0 00 TA ti IC 30 0- 7- 00 00 L ve 70 20 20 93 CA ON 01 17 17 90 RE E 6 86 MD PH OP AR MA 50 CY MC #5 G SP RA Y LE 00 08 10 30 30 00 TO Ac VO 37 -0 -2 .0 00 TA ti TH 81 2- 7- 00 00 L ve YR 80 20 20 93 CA OX 31 17 17 39 RE IN 0 53 E PH 50 AR MA MC CY G TA #5 BL ET DU 57 01 30 30 00 TO Ac LO 23 -0 -2 .0 00 TA ti XE 70 4- 7- 00 00 L ve TI 01 20 20 93 CA NE 76 17 17 19 RE 0 86 HC PH L AR DR MA CY 20 #5 MG CA P 00 08 10 30 30 00 TO Ac TA 90 -0 -2 .0 00 TA ti MA 45 4- 7- 00 00 L ve N 98 20 20 93 CA D3 66 17 17 48 RE 0 02 5, PH 00 AR 0 MA UN CY IT #5 CA PS UL E DA 00 08 10 30 30 00 TO Ac LI 31 -0 -2 .0 00 TA ti RE 00 5- 7- 00 00 L ve SP 09 20 20 93 CA 53 17 17 39 RE 50 0 60 0 PH MC AR G MA TA CY BL ET #5 LI 00 12 30 30 00 TO Ac SI 18 -1 -0 .0 00 TA ti NO 50 4- 9- 00 00 L ve MD 61 20 20 93 CA IL 01 16 17 55 RE 0 02 10 PH AR MG MA CY TA BL #5 ET BU 00 12 01 60 30 00 TO Ac MD 78 -1 -0 .0 00 TA ti OP 11 4- 9- 00 00 L ve IO 06 20 20 92 CA N 40 16 17 94 RE HC 1 92 L PH 10 AR 0 MA MG CY TA #5 BL ET Immunization Name Date Rout CVX Reac Dose Comm Prov Is Faci e tion ent ider Refu lity Give sed n IIV3 12-0 141 FAMI No FAMI 4-20 LY LY VACC 14 CARE CARE INE SPLI ASSO ASSO T CIAT CIAT VIRU ES ES S 0.5 ML DOSA GE IM USE INFL 10-1 144 NORF No NORF UENZ 1-20 LEET LEET A 13 R H VACC IIV3 R H SPLI T VIRU S PRSR V FREE ID Procedures Procedure [place] [address] [facility] TRIIODOTH 7 [facility] YRONINE T3 FREE [facility] [address] [facility] FREE [address] [place] [address] THYROXINE HEALTH[place] [address] [facility] THYROID 7 [facility] STIMULATI NG HEALTHCAR HEALTHCAR HORMONE E EDGE E EDGE TSH COMPREHEN 91942 [facility] SIVE [address] [place] [address] METABOLIC PANEL HEALTHCAR HEALTHCAR E EDGE E EDGE COLLECTIO 26527 [facility] N VENOUS 7 [facility] BLOOD VENIPUNCT HEALTH[place] [address] [facility] INFUSION 7 [facility] THERAPY/P ROPHYLAXI HEALTHCAR HEALTHCAR S /DX 1ST E EDGE E EDGE TO 1 HR INJECTION [id number] [address] ZOLEDRONI C ACID 1 HEALTHCAR HEALTHCAR MG E EDGE E EDGE BASIC [address] NOTA METABOLIC [address] [place] [address] CALCIUM HEALTHCAR TOTAL E EDGE PLETHYSMO 820[address] [facility] GRAPHY [address] [place] [address] [facility] VOLUMES W/WO AIRWAY RESIST SCREENING 96300 RADIOLOGY KLEIMEYER 7 MAMMOGRAP ASSOCIATE HY BI S [facility] [place] [address] [facility] DIFFUSING 7 MATA CAPACITY MED CTR LOW DOSE G[address] SCAN 7 FOR LUNG ASSOCIATE CANCER S OF [facility] SCREENING BRNCDILAT 18048 [facility] RSPSE 7 MATA SPMTRY MED CTR PRE&POST- BRNCDILAT ADMN SCREENING G0202 [facility] 7 MATA MATA MAMMOGRAP FT FT HY ZULY ROB ROB INCL CAD WHEN PERFORMD DXA BONE 75689 RADIOLOGY [facility]LIN DENSITY 7 STUDY 1/> ASSOCIATE SITES S [facility] AXIAL SKEL ACUTE 75696 [facility] HEPATITIS 7 MATA AUGUST PANEL HEALTHCAR HEALTHCAR E EDGE E EDGE COMPREHEN 73231 [facility] SIVE 7 MATA AUGUST METABOLIC PANEL HEALTHCAR HEALTHCAR E EDGE E EDGE BLOOD 38628 [facility] COUNT 7 MATA AUGUST COMPLETE AUTO&AUTO HEALTHCAR HEALTHCAR DIFRNTL E EDGE E EDGE WBC LIPID 48285 [facility] PANEL 7 MATA AUGUST [place] [address] [facility] THYROID 7 MATA AUGUST STIMULATI NG HEALTHCAR HEALTHCAR [place] [address] [facility] FREE 7 MATA AUGUST THYROXINE HEALTHCAR HEALTHCAR E EDGE E EDGE HEMOGLOBI 68805 [facility] N 7 MATA AUGUST GLYCOSYLA RYLEY A1C [place] [address] [facility] TRIIODOTH 7 MATA AUGUST YRONINE T3 FREE HEALTHCAR HEALTHCAR E EDGE E EDGE IADNA 02704 [facility] HUMAN 7 MATA AUGUST PAPILLOMA VIRUS HEALTHCAR HEALTHCAR HIGH-RISK E EDGE E EDGE TYPES 25 71181 [facility] HYDROXY 7 MATA AUGUST INCLUDES FRACTIONS HEALTHCAR HEALTHCAR IF E EDGE E EDGE PERFORMED CYTP C/V [address] AUTO THIN 7 MATACORA AUGUST LYR PREPJ SCR HEALTHCAR HEALTHCAR MNL E EDGE E EDGE RESCR PHYS CULTURE [address] BACTERIAL 6 MATA MATA MED CTR MED CTR QUANTTATI MULTIMEDIA AUTHOR ST MULTIMEDIA AUTHOR ST VE COLONY COUNT URINE CT THORAX [address] W/O 6 MATA MATA CONTRAST MATERIAL [place] [address] ABDOMEN & 6 MATA MATA PELVIS FT FT W/O [facility] CONTRAST MATERIAL COMPUTER- [address] AIDED 6 MATA MATA DETECTION HEALTHCAR HEALTHCAR SCREENING E EDGE E EDGE MAMMOGRAP HY SCREENING G0202 RADIOLOGY ROEBKER 6 JAM MAMMOGRAP ASSOCIATE HY ZULY S OF NOTH INCL CAD WHEN PERFORMD SCREENING [address] 6 MATA MATA MAMMOGRAP HY HEALTHCAR HEALTHCAR BILATERAL E EDGE E EDGE IAADIADOO [address] ST CASTRO 6 MATA ZHOU ELIDA INFLUENZA PHYSICIAN S IAADIADOO [address] ST CASTRO 6 MATA ZHOU ELIDA STREPTOCO CCUS PHYSICIAN GROUP A S INJECTION J1040 ST SMITH 6 MATA MEYER METHYLPRE DNISOLONE PHYSICIAN ACETATE S [address] SMITH IC 6 MATA BETSY PROPHYLAC TIC/DX PHYSICIAN INJECTION S SUBQ/IM INJ J0702 ST SMITH BETAMETHA 6 MATA BETSY SONE ACETATE & PHYSICIAN S PHOSPHATE 3 MG NONEMERGE A0100 LKLP CAC KELSIES NCY 5 INC TRANSPORT TRANSPORT REGION 9 ATION CO ATION; L TAXI DIRECT G0154 PERSONAL PERSONAL SKILL 5 TOUCH TOUCH NURSE HOME F[facility] CARE SERVICES OF OF HH/HOSPIC E EA 15 MIN DIRECT G0154 PERSONAL PERSONAL SKILL 5 TOUCH TOUCH NURSE HOME FPC CARE SERVICES OF OF HH/HOSPIC E EA 15 MIN SERVICE G0151 PERSONAL PERSONAL PHYS 5 TOUCH TOUCH THERAP HOME FPC FPC OF OF HLTH/HOSP ICE EA 15 MIN NONEMERGE A0100 LKLP CAC LAVERNENETTS NCY 5 INC TRANSPORT TRANSPORT REGION 9 ATION CO ATION; L TAXI DIRECT G0154 PERSONAL PERSONAL SKILL 5 TOUCH TOUCH NURSE HOME FPC CARE SERVICES OF OF HH/HOSPIC E EA 15 MIN DIRECT G0154 PERSONAL PERSONAL SKILL 5 TOUCH TOUCH NURSE HOME FPC CARE SERVICES OF OF HH/[place]OSP[place] 15 [place] [address] SCALF LEI SCALF LEI SURG 5 PATHOLOGY GROSS&DENISA ROSCOPIC EXAM IMHISTOCH 57229 SCALF LEI SCALF LEI EM/CYTCHM 5 1ST ANTIBODY STAIN PROCEDURE CUL BACT 76539 QUEST QUEST XCPT 5 DIAGNOSTI DIAGNOSTI URINE CS CS BLOOD/STO OL AEROBIC ISOL DESTRUCTI 64295 ATKINS ATKINS ON BENIGN 5 TRA TRA LESIONS UP TO 14 SHVG SKIN 84706 ATKINS ATKINS LESION 1 5 TRA TRA TRUNK/ARM /LEG DIAM 0.6-1.0 CM SERVICE G0151 PERSONAL PERSONAL PHYS 5 TOUCH TOUCH THERAP HOME FPC FPC OF OF HLTH/HOSP ICE EA 15 MIN SERVICE G0151 PERSONAL PERSONAL PHYS 5 TOUCH TOUCH THERAP HOME FPC FPC OF OF HLTH/HOSP ICE EA 15 MIN DIRECT G0154 PERSONAL PERSONAL SKILL 5 TOUCH TOUCH NURSE HOME FPC CARE SERVICES OF OF HH/HOSPIC E EA 15 MIN SERVICE G0151 PERSONAL PERSONAL PHYS 5 TOUCH TOUCH THERAP HOME FPC FPC OF OF HLTH/HOSP ICE EA 15 MIN SERVICE G0151 PERSONAL PERSONAL PHYS 5 TOUCH TOUCH THERAP HOME FPC FPC OF OF HLTH/HOSP ICE EA 15 MIN DIRECT G0154 PERSONAL PERSONAL SKILL 5 TOUCH TOUCH NURSE HOME FPC CARE SERVICES OF OF HH/HOSPIC E EA [address] METABOLIC 5 MATAJES AUGUST PANEL MED CTR MED CTR CALCIUM MULTIMEDIA AUTHOR ST MULTIMEDIA AUTHOR ST TOTAL DIRECT G0154 PERSONAL PERSONAL SKILL 5 TOUCH TOUCH NURSE HOME FPC CARE SERVICES OF OF HH/HOSPIC E EA 15 MIN SERVICE G0151 PERSONAL PERSONAL PHYS 5 TOUCH TOUCH THERAP HOME FPC FPC OF OF HLTH/HOSP ICE EA 15 MIN DIRECT G0154 PERSONAL PERSONAL SKILL 5 TOUCH TOUCH NURSE HOME FPC CARE SERVICES OF OF HH/HOSPIC E EA 15 MIN PHYS CERT G0180 ST [facility]STRO MCR-COVR 5 MATA ZHOU ELIDA [facility] SRVC PER PHYSICIAN CERT PRD [facility] 61968 INTERNAL DAVIN DISCHARGE 5 MEDICINE CHR DAY OF MANAGEMEN [place] T > 30 MIN SBSQ 10115 INTERNAL [facility] 5 MEDICINE CARE/DAY OF 25 [place] MINUTES SBSQ 04380 INTERNAL [facility] 5 MEDICINE CARE/DAY OF 25 [place] MINUTES SBSQ 79365 INTERNAL [facility] 5 MEDICINE CARE/DAY OF 25 [place] MINUTES SBSQ 13518 INTERNAL [facility] 5 MEDICINE CARE/DAY OF 25 [place] MINUTES SBSQ 68[address] [place] [address] MATA MELODY CARE/DAY 25 PHYSICIAN MINUTES S ECG [address] KATHERYN ROUTINE 5 MATA DEL ECG MED CTR W/LEAST 12 LDS I&R ONLY ECG [address] ST KATHERYN ROUTINE 5 MATA DEL ECG MED CTR W/LEAST 12 LDS I&R ONLY SBSQ 09654 [place] [address] MATA MELODY CARE/DAY 25 PHYSICIAN MINUTES S SBSQ 65502 [place] [address] MATA IRF CARE/DAY 35 PHYSICIAN MINUTES S INITIAL 28054 [facility] INPATIENT 5 MATA CONSULT NEW/ESTAB PHYSICIAN PT 55 S MIN SBSQ 01000 [place] [address] MATA MELODY CARE/DAY 25 PHYSICIAN MINUTES S SBSQ 72097 [place] [address] MATA PEDRO CARE/DAY 25 PHYSICIAN MINUTES S SBSQ 21074 [place] [address] MATA MELODY CARE/DAY 25 PHYSICIAN MINUTES S SBSQ 98852 [place] [address] MATA CHER CARE/DAY 35 PHYSICIAN MINUTES S INITIAL 34987 [facility] INPATIENT 5 MATA CHER CONSULT NEW/ESTAB PHYSICIAN PT 80 S MIN SBSQ 36937 [facility] 5 MATA MELODY CARE/DAY 25 PHYSICIAN MINUTES S RADIOLOGI 27839 RADIOLOGY [facility] C EXAM 5 SAMUEL CHEST 2 ASSOCIATE VIEWS S OF NOTH FRONTAL&L ATERAL INITIAL 10529 [place] [address] MATA MELODY CARE/DAY [place] [address] TRIIODOTH 5 MATA MATA YRONINE MED CTR MED CTR T3 FREE MULTIMEDIA AUTHOR [place] [address] FREE 5 MATA MATA THYROXINE MED CTR MED CTR MULTIMEDIA AUTHOR [place] [address] THYROID 5 MATA MATA STIMULATI MED CTR MED CTR NG MULTIMEDIA AUTHOR ST MULTIMEDIA AUTHOR ST HORMONE TSH RADIOLOGI 44834 RADIOLOGY BRANDSER C EXAM 5 XAVIER CHEST 2 ASSOCIATE VIEWS S OF NOTH FRONTAL&L ATERAL INJ J0702 ST [facility] BETAMETHA 5 MATA ZHOU ELIDA SONE ACETATE & PHYSICIAN S PHOSPHATE [address] IN[address] [facility] 5 MATA ABELARDO ELIDA METHYLPRE DNISOLONE PHYSICIAN ACETATE S [address] [facility]STRO IC 5 MATA ABELARDO [place] PROPHYLAC TIC/DX PHYSICIAN INJECTION S SUBQ/IM [address] HYDROXY 5 MATA MATA INCLUDES MED CTR MED CTR FRACTIONS MULTIMEDIA AUTHOR ST M[place] [address] TRIIODOTH 5 MATA MATA YRONINE MED CTR MED CTR T3 FREE MULTIMEDIA AUTHOR ST MULTIMEDIA AUTHOR ST HEMOGLOBI [address] N 5 MATA MATA GLYCOSYLA MED CTR MED CTR RYLEY A1C MULTIMEDIA AUTHOR [place] [address] THYROID 5 MATA MATA STIMULATI MED CTR MED CTR NG MULTIMEDIA AUTHOR ST M[place] [address] FREE 5 MATA MATA THYROXINE MED CTR MED CTR MULTIMEDIA AUTHOR ST MULTIMEDIA AUTHOR ST COMPREHEN [address] SIVE 5 MATA AUGUST METABOLIC MED CTR MED CTR PANEL MULTIMEDIA AUTHOR ST MULTIMEDIA AUTHOR ST BLOOD [address] COUNT 5 MATA AUGUST COMPLETE MED CTR MED CTR AUTO&AUTO MULTIMEDIA AUTHOR ST MULTIMEDIA AUTHOR ST DIFRNTL WBC COLLECTIO 61143 ST CASTRO N VENOUS 5 MATA ZHOU [place] BLOOD VENIPUNCT PHYSICIAN URE S LIPID [address] PANEL 5 MATA AUGUST MED CTR MED CTR MULTIMEDIA AUTHOR ST MULTIMEDIA AUTHOR ST CHIROPRAC 36350 CHUN ALY TIC 5 CHIROPRAC GAR MANIPULAT TIC NAEL TX CENTER SPINAL 1-2 REGIONS CHIROPRAC 43173 CHUN ALY TIC 5 CHIROPRAC GAR MANIPLTV TIC TX CENTER EXTRASPIN AL 1/> REGION APPL 95826 CHUN ALY MODALITY 5 CHIROPRAC GAR 1/> AREAS TIC ELEC CENTER STIMJ UNATTENDE D APPL 08910 CHUN ALY MODALITY 5 CHIROPRAC GAR 1/> AREAS [place] [address] CHUN ALY 1/> AREAS 5 CHIROPRAC GAR EACH 15 TIC MINUTES CENTER MASSAGE APPLICATI 79909 CHUN ALY ON 5 CHIROPRAC GAR MODALITY TIC 1/> AREAS CENTER HOT/COLD PACKS THERAPEUT 13821 ST CASTRO IC 5 MATA ZHOU [place] PROPHYLAC TIC/DX PHYSICIAN INJECTION S SUBQ/IM INJECTION J1030 ST CASTRO 5 MATA ZHOU [place] METHYLPRE DNISOLONE PHYSICIAN ACETATE S 40 MG DXA BONE 55037 RADIOLOGY [facility] DENSITY 5 CHR STUDY ASSOCIATE 1/>SITES S OF NOTH APPENDICL R SKEL DXA BONE 01496 RADIOLOGY [facility] DENSITY 5 CHR STUDY 1/> ASSOCIATE SITES S OF NOTH AXIAL SKEL TRANSITIO 60483 ST [facility] NAL CARE 5 MATA ZHOU [place] MANAGE SRVC 14 PHYSICIAN DAY S DISCHARGE COMPREHEN [address] SIVE 5 MATA AUGUST METABOLIC MED CTR MED CTR PANEL MULTIMEDIA AUTHOR ST MULTIMEDIA AUTHOR ST COLLECTIO [address] ST [facility] N VENOUS 5 MATA ZHOU [place] BLOOD VENIPUNCT PHYSICIAN URE S BLOOD [address] COUNT 5 MATA MATA COMPLETE MED CTR MED CTR AUTO&AUTO MULTIMEDIA AUTHOR ST MULTIMEDIA AUTHOR ST DIFRNTL WBC [address] HYDROXY 5 MATA MATA INCLUDES MED CTR MED CTR FRACTIONS MULTIMEDIA AUTHOR ST MULTIMEDIA AUTHOR ST IF PERFORMED HEMOGLOBI [address] N 5 MATA MATA GLYCOSYLA MED CTR MED CTR RYLEY A1C MULTIMEDIA AUTHOR [place] [address] THYROID 5 MATA AUGUST STIMULATI MED CTR MED CTR NG MULTIMEDIA AUTHOR ST MULTIMEDIA AUTHOR ST HORMONE TSH SBSQ 30983 [facility] 5 MATA MELODY CARE/DAY 25 PHYSICIAN MINUTES S SBSQ 34986 [facility] 5 MATA BOZENA CARE/DAY 25 PHYSICIAN MINUTES S ECHO 59613 [facility] TTHRC R-T 5 MATA MAR 2D W/WOM-MOD PHYSICIAN E COMPL S SPEC&COLR D INITIAL 22519 [facility] INPATIENT 5 MATA DANNA CONSULT NEW/ESTAB PHYSICIAN PT 80 S MIN [facility]OCARDIA 63393 [facility] S[facility] 5 MATA MULTIPLE STUDIES PHYSICIAN S ECG 52923 [facility] CHR ROUTINE 5 MATA ECG MED CTR W/LEAST 12 LDS I&R ONLY CV STRS 29835 [facility] 5 MATA DAM XERS&/OR RX CONT PHYSICIAN ECG I&R S ONLY DUPLEX 31420 [facility] SCAN 5 MATA MELODY EXTRACRAN MED CTR IAL ART COMPL BI STUDY CV STRS 42178 [facility] TST 5 MATA DAM XERS&/OR RX CONT PHYSICIAN ECG W/O S I&R INITIAL 39526 [facility] 5 MATA MELODY CARE/DAY 70 PHYSICIAN MINUTES S RADIOLOGI 14201 RADIOLOGY COLIN C 5 MAR EXAMINATI ASSOCIATE ON CHEST S OF NOTH SINGLE VIEW FRONTAL GROUND A0425 [facility] DELC[facility]LE[facility] MILEAGE 5 CO CO PER AMBULANCE AMBULANCE STATUTE TAXIN TAXIN MILE ECG [address]12 ST [facility] CHR ROUTINE 5 MATA ECG MED CTR W/LEAST 12 LDS I&R ONLY AMB A0427 LA [facility] SERVICE 5 CO CO ALS AMBULANCE AMBULANCE EMERGENCY TAXIN TAXIN TRANSPORT LEVEL 1 ARTHROCEN 55464 [facility] TESIS 5 PAIN & URUGAN ASPIR&/IN SPINE HEM J MAJOR INSTIT JT/BURSA W/O US FLUOROSCO 74178 [facility] PIC 5 PAIN & URUGAN GUIDANCE SPINE HEM [place] IN[place] [address] [facility] JOINT 5 PAIN & MAG ARTHRGRPH SPINE Y&/ANES/S INSTIT TEROID W/TIFFANIE NJX 34290 [facility] DX/THER 4 PAIN & MAG AGT PVRT SPINE FACET JT INSTIT CRV/THRC 3+ LEVEL NJX 50921 [facility] DX/THER 4 PAIN & MAG AGT PVRT SPINE FACET JT INSTIT CRV/THRC 1 LEVEL NJX 06207 [facility] DX/THER 4 PAIN & MAG AGT PVRT SPINE FACET JT INSTIT CRV/THRC 2ND LEVEL DSTR 36845 [facility] NROLYTC 4 PAIN & MAG AGNT SPINE PARVERTEB INSTIT FCT SNGL LMBR/SACR AL DSTR 68546 [facility] NROLYTC 4 PAIN & MAG AGNT SPINE PARVERTEB INSTIT FCT ADDL LMBR/SACR AL CHIROPRAC 10895 CHUN LYON TIC 4 CHIROPRAC LUCÍA MANIPULAT TIC NAEL TX CENTER SPINAL 1-2 REGIONS IIV3 37314 FAMILY FAMILY VACCINE 4 CARE CARE SPLIT ASSOCIATE ASSOCIATE VIRUS 0.5 S S ML DOSAGE IM USE RADIOLOGI 11593 XIAO Hollins 4 [facility] EXAMINATI INC INC ON KNEE 3 VIEWS DSTR 33223 [facility] NROLYTC 4 PAIN & MAG AGNT SPINE PARVERTEB INSTIT FCT SNGL LMBR/SACR AL DSTR 90508 [facility] NROLYTC 4 PAIN & MAG AGNT SPINE PARVERTEB INSTIT [place]CT [place]X [address]199 [facility] DX/THER 4 PAIN & MAG AGT PVRT SPINE FACET JT INSTIT LMBR/SAC 1 LEVEL NJX 46423 [facility] DX/THER 4 PAIN & MAG AGT PVRT SPINE FACET JT INSTIT LMBR/SAC 2ND LEVEL BLOOD 64024 FAMILY FAMILY COUNT 4 CARE CARE COMPLETE ASSOCIATE ASSOCIATE AUTO&AUTO S S DIFRNTL WBC IADNA 56916 RADHA LY NEISSERIA 4 ALIYAH JEFFERY GONORRHOE AE DIRECT PROBE TQ CULTURE 16343 RADHA LY CHLAMYDIA 4 ALIYAH JEFFERY ANY SOURCE URINLS 31973 RADHA LY DIP 4 ALIYAH ABDUL LATIA STICK/TAB LET REAGNT NON-AUTO MICRSCPY BLOOD 71922 RADHA GARCIA R OCCULT 4 ALIYAH LY MD PEROXIDAS E ACTV QUAL FECES 1 DETER NJX 87296 [facility] DX/THER 4 PAIN & MAG AGT PVRT SPINE FACET JT INSTIT LMBR/SAC 2ND LEVEL NJX 53696 ADVANCED KERSCHNER DX/THER 4 PAIN & MAG AGT PVRT SPINE FACET JT INSTIT LMBR/SAC 1 LEVEL APPL 21745 LUKING LUKING MODALITY 4 DELFIN DELFIN 1/> AREAS ELEC STIMJ UNATTENDE D CHIROPRAC 82627 LUKING LUKING TIC 4 DELFIN DELFIN MANIPULAT NAEL TX SPINAL 1-2 REGIONS APPL 84603 LUKING LUKING MODALITY 4 DELFIN DELFIN 1/> AREAS ULTRASOUN D [place] 15 [place] [address] LUKING LUKING 1/> AREAS 4 DELFIN DELFIN EACH [place] [address] LUKING LUKING 1/> AREAS 4 DELFIN DELFIN EACH 15 MINUTES MASSAGE APPL 58837 LUKING LUKING MODALITY 4 DELFIN DELFIN 1/> AREAS ULTRASOUN D EA 15 MIN APPLICATI 99197 LUKING LUKING ON 4 DELFIN DELFIN MODALITY 1/> AREAS H[place] [address] LUKING LUKING 1/> AREAS 4 DELFIN DELFIN EACH 15 MIN NEUROMUSC REEDUCA THERAPEUT 75039 LUKING LUKING IC PX 1/> 4 DELFIN DELFIN AREAS EACH 15 MIN EXERCISES CHIROPRAC 98715 LUKING LUKING TIC 4 DELFIN DELFIN MANIPULAT NAEL TX SPINAL 3-4 REGIONS APPL 95858 LUKING LUKING MODALITY 4 DELFIN DELFIN 1/> AREAS ELEC STIMJ UNATTENDE D APPL 00161 LUKING LUKING MODALITY 4 DELFIN DELFIN 1/> AREAS ELEC STIMJ UNATTENDE D CHIROPRAC 64977 LUKING LUKING TIC 4 DELFIN DELFIN MANIPULAT NAEL TX SPINAL 3-4 REGIONS APPL 45697 LUKING LUKING MODALITY 4 DELFIN DELFIN 1/> AREAS TRACTION MECHANICA L THERAPEUT 08464 LUKING LUKING IC PX 1/> 4 DELFIN DELFIN AREAS EACH [place] [address] LUKING LUKING 1/> AREAS 4 DELFIN DELFIN EACH 15 MIN NEUROMUSC REEDUCA APPLICATI 99571 LUKING LUKING ON 4 DELFIN DELFIN MODALITY 1/> AREAS [place] [address] LUKING LUKING 1/> AREAS 4 DELFIN DELFIN EACH 15 MINUTES MASSAGE ARTHROCEN 75824 FAMILY FAMILY TESIS 4 CARE CARE ASPIR&/IN ASSOCIATE ASSOCIATE J HAMZAH S Vivek GUERRERO/KAYA W/O US CULTURE 31057 LAB SHAY LAB SHAY BACTERIAL 4 [facility] HOLDINGS QUANTTATI VE COLONY COUNT URINE CYANOCOBA 33167 [facility] CLARENCE 4 GNOSTICIST [facility]NOST[facility] VITAMIN [facility]P H[place]P B-[address] [place] [address] [facility] THYROID 4 GNOSTICIST GNOSTICIST STIMULATI [place] [address] [facility] AMMONIA 4 GNOSTICIST GNOSTICIST HOSP HOSP BLOOD 79147 MORGAN MORA COUNT 4 RIT RIT COMPLETE AUTO&AUTO DIFRNTL WBC INJECTION J2550 MORGAN LEVYE 4 RIT RIT PROMETHAZ INE HCL UP TO 50 MG THERAPEUT 58016 MORGAN MORA IC 4 RIT RIT PROPHYLAC TIC/DX INJECTION SUBQ/IM BLOOD 18776 JUSTUS Vasquez COUNT 4 G G COMPLETE AUTO&AUTO DIFRNTL WBC COLLECTIO 26767 JUSTUS Vasquez N 4 G G CAPILLARY BLOOD SPECIMEN IAADIADOO 20143 JUSTUS Vasquez 4 G G STREPTOCO CCUS GROUP A DIAGNOSTI G0204 MARIA A SAHA C 4 CHAVA CHAVA MAMMOGRAP HY INCL CAD WHEN PERF; BILAT COMPUTER- 37519 MARIA A SAHA AIDED 4 CHAVA CHAVA DETECTION DX MAMMOGRAP HY US BREAST 16598 MARIA A SAHA REAL 4 CHAVA CHAVA TIME W/IMAGE DOCUMENTA TION MAMMOGRAP [address] HY 4 MATA MATA BILATERAL MED CTR MED CTR MULTIMEDIA AUTHOR ST MULTIMEDIA AUTHOR ST URNLS DIP 12643 JUSTUS Vasquez 4 G G STICK/TAB LET RGNT NON-AUTO W/O MICRSCP COLLECTIO 23641 JUSTUS Vasquez N VENOUS 4 G G BLOOD VENIPUNCT URE COMPREHEN 82320 LAB [facility]AY LAB SHAY SIVE 4 OF ROHAN METABOLIC ROHAN HOLDINGS PANEL HOLDINGS RADEX 32261 DESJARDIN DESJARDIN SPINE 3 S MAT S MAT LUMBOSACR AL 2/3 VIEWS RADEX 36786 XIAO XIAO SPINE 3 [facility] LUMBOSACR INC INC AL MINIMUM 4 VIEWS URNLS DIP 74469 JM JM 3 R H R H STICK/TAB LET RGNT NON-AUTO W/O MICRSCP CULTURE 25399 LAB SHAY LAB [facility]AY BCT 3 ROHAN ROHAN ISOL&PRSM HOLDINGS HOLDINGS PTV ID ISOLATE EA URINE CUL BACT 02433 LAB [facility] LAB SHAY AEROBIC 3 [facility] ADDL HOLDINGS HOLDINGS METHS DEFINITIV E EA ISOL CULTURE 55138 LAB SHAY LAB SHAY BACTERIAL 3 [facility] [employer] HOLDINGS QUANTTATI VE COLONY COUNT URINE INFLUENZA 98608 JM JM VACC 3 R H R H IIV3 SPLIT VIRUS PRSRV FREE ID SUSCEPTIB 51554 LAB [facility]AY LAB [facility]AY LTY STDY 3 [facility] ANTIMICRB HOLDINGS HOLDINGS IAL MICRO/AGA R DILUTJ CHIROPRAC 79064 JULIANN HUMPHREYS TIC 3 MELODY MELODY MANIPULAT NAEL [place] SPINAL 3-4 REGIONS APPL 31693 JLUIANN HUMPHREYS MODALITY 3 MELODY MELODY 1/> [place] [address] JULIANN JULIANN 1/> AREAS 3 MELODY MELODY EACH 15 MIN NEUROMUSC REEDUCA APPLICATI 36748 JULIANN JULIANN ON 3 MELODY MELODY MODALITY 1/> AREAS [place] [address] JULIANN JULIANN 1/> AREAS 3 MELODY MELODY EACH 15 MINUTES MASSAGE BLOOD 68668 JUSTUS Vasquez COUNT 3 G G COMPLETE AUTO&[place] [address] JULIANN JULIANN 1/> AREAS 3 MELODY MELODY EACH 15 MINUTES MASSAGE APPLICATI 77750 JULIANN JULIANN ON 3 MELODY MELODY MODALITY 1/> AREAS [place] [address] JULIANN JULIANN 1/> AREAS 3 MELODY MELODY EACH 15 MIN NEUROMUSC REEDUCA APPL 33850 JULIANN JULIANN MODALITY 3 MELODY MELODY 1/> AREAS ELEC STIMJ UNATTENDE D CHIROPRAC 07803 JULIANN HUMPHREYS TIC 3 MELODY MELODY MANIPULAT NAEL [place] SPINAL 3-4 REGIONS CHIROPRAC 81237 JULIANN HUMPHREYS TIC 3 MELODY MELODY MANIPULAT NAEL [place] SPINAL 3-4 REGIONS APPL 10603 JULIANN JULIANN MODALITY 3 MELODY MELODY 1/> AREAS ELEC STIMJ UNATTENDE D APPLICATI 37002 JULIANN JULIANN ON 3 MELODY MELODY MODALITY 1/> [place] [address] JULIANN JULIANN 1/> AREAS 3 MELODY MELODY EACH 15 MINUTES MASSAGE APPL 26987 JULIANN JULIANN MODALITY 3 MELODY MELODY 1/> AREAS ULTRASOUN D EA 15 MIN APPLICATI 83340 JULIANN JULIANN ON 3 MELODY MELODY MODALITY 1/> AREAS HOT/COLD PACKS APPL 82067 JULIANN JULIANN MODALITY 3 MELODY MELODY 1/> AREAS ELEC STIMJ UNATTENDE D CHIROPRAC 81294 JULIANN HUMPHREYS TIC 3 MELODY MELODY MANIPULAT NAEL TX SPINAL 3-4 REGIONS APPL 98138 JULIANN HUMPHREYS MODALITY 3 MELODY MELODY 1/> AREAS ELEC STIMJ UNATTENDE D APPLICATI 67053 JULIANN HUMPHREYS ON 3 MELODY MELODY MODALITY 1/> AREAS HOT/COLD PACKS APPL 07633 JULIANN HUMPHREYS MODALITY 3 MELODY MELODY 1/> AREAS ULTRASOUN D EA 15 MIN CHIROPRAC 92979 JULIANN HUMPHREYS TIC 3 MELODY MELODY MANIPULAT NAEL TX SPINAL 3-4 REGIONS BLOOD 63798 JUSTUS Vasquez COUNT 3 G G COMPLETE AUTO&[place] [address] [facility] [employer] BLOOD/URI 3 DIAGNOSTI DIAGNOSTI C ACID CS CS ARTHROCEN 85133 PETTEY PETTEY TESIS 3 JAM JAM ASPIR&/IN J MAJOR JT/BURSA W/O US HYALURONA J7325 PETTEY PETTEY N/DERIV 3 JAM JAM SYNVISC/S YNVISC-ON E IA INJ 1 MG ARTHROCEN 23430 PETTEY PETTEY TESIS 3 JAM JAM ASPIR&/IN J MAJOR JT/BURSA W/O US INJ J0702 PETTEY PETTEY BETAMETHA 3 JAM JAM SONE ACETATE & PHOSPHATE 3 MG POST-HEATHER 44310 [facility] THORNTON RACT 3 ALONZO ALONZO LASER SURGERY ANTINUCLE 76709 [facility] AR 3 DIAGNOSTI DIAGNOSTI ANTIBODIE CS CS S THOMAS RADIOLOGI 58253 [facility] C 3 MELVIN MLEVIN EXAMINATI ON KNEE 3 VIEWS RHEUMATOI 19096 [facility] D FACTOR 3 DIAGNOSTI DIAGNOSTI QUANTITAT CS CS NAEL POST-HEATHER 84170 THORNTON THORNTON RACT 3 ALONZO ALONZO LASER SURGERY URNLS DIP 86042 SALINAS SALINAS 3 JAQUAN JAQUAN STICK/TAB LET RGNT NON-AUTO W/O MICRSCP OPHTH 57296 SIGIFREDO Knowles WENDY [facility] 3 WENDY, XM&EVAL OD, PSC COMPRE NEW PT 1/> VST DETERMINA 36780 SIGIFREDO NGUYEN HERBERTH TION 3 WENDY, RE[place]RACTIV [place], [place] [address] [facility] INFUSION 3 [facility] THERAPY/P INC INC ROPHYLAXI S /DX 1ST TO 1 HR THERAPEUT 63240 [facility] IC 3 [facility] INJECTION INC INC IV PUSH EACH NEW DRUG CYSTO 51694 BRAD SALINAS CALIBRATI 3 JAQUAN JAQUAN ON DILAT URTL STRIX/ALLISON NOSIS CYSTOURET 02608 [facility]IA[facility] H[facility]EN HROSCOPY 3 [facility] [place] [address] XIAO HAGEN INFUSION 3 [facility] THERAPY INC INC PROPHYLAX IS/DX EA HOUR INJECTION J2405 [facility] HAGEN 3 [facility] ONDANSETR INC INC ON HCL PER 1 MG ANES 68956 [facility] TRANSURET 3 ANESTH HRAL OF THE W/URETHRO BLUE CYSTOSCOP Y NOS SERVICES 10369 [facility] PROVIDED 3 R H R H OFFICE OTH/THN REG SCHED HOURS IAADIADOO 63535 [facility] 3 R H R H INFLUENZA URNLS DIP 30401 BRAD SALINAS 3 JAQUAN JAQUAN STICK/TAB LET RGNT NON-AUTO W/O MICRSCP URNLS DIP 23161 [facility] R H STICK/TAB LET RGNT NON-AUTO W/O [facility] 86788 SUYAPA RAINEY DISCHARGE 2 DAY MANAGEMEN T 30 MIN/< SBSQ 12323 [facility] 2 ROSALINA ROMANO MD CARE/DAY 25 MINUTES SBSQ 58316 [facility] 2 CARE/DAY 25 MINUTES EGD 42429 MADIE RAMACHANDRAN TRANSORAL 2 ROSALINA ROMANO MD BIOPSY SINGLE/MU LTIPLE DILATION 92949 MADIE RAMACHANDRAN ESOPH 2 ROSALINA ROMANO MD UNGUIDED SOUND/CAROL GIE 1/MULT PASS DILATION [address] OF 2 [facility] [address] [facility] CENTER CLOSED [address] [ENDOSCOP 2 [facility] IC] [facility] BIOPSY OF CENTER CENTER [facility] INTESTINE CLOSED [address] BIOPSY OF 2 [facility] [address] [facility] ESOPHAGOG [address] ASTRODUOD 2 [facility] ENOSCOPY [facility] CENTER CLOSED BIOPSY COLONOSCO 21311 MADIE GARZAENRY PY 2 ROSALINA ROMANO MD W/BIOPSY SINGLE/MU LTIPLE INITIAL 47461 [facility] 2 CARE/[place] [address] [place] [address] DEENA SHAFFER ABDOMEN & 2 ALLISON ALLISON PELVIS W/CONTRAS T MATERIAL INITIAL 13886 MADIE GARZAENRY INPATIENT 2 ROSALINA ROMANO MD CONSULT NEW/ESTAB PT 80 MIN RADEX 07210 DEENA SHAFFER ABDOMEN 2 ALLISON ALLISON COMPL W/DCBTS&/ ERC VIEWS CREATININ 07448 [facility] E BLOOD 2 DIAG[place] [address] [facility] UREA 2 DIAGNOSTI DIAGNOSTI NITROGEN CS CS QUANTITAT NAEL ECG 85973 MARIA FERNANDA IRVING ROUTINE 2 DENISA DENISA ECG W/LEAST 12 LDS I&R ONLY Encounters Encounter Start End Date Code Location Performer Type Date OFFICE [facility]2693 [facility] 7 7 MATA T VISIT 25 PHYSICIAN MINUTES [facility] - 7 7 MATA OUTPATIEN T [facility] - 7 7 M[facility] OUTPATIEN [facility] - 7 7 MATA OUTPATIEN FT [facility] - 7 7 MATA OUTPATIEN [facility] - 7 7 MATA OUTPATIEN T [facility] OFFICE [facility]56 [facility] 7 7 MATA T VISIT 15 PHYSICIAN MINUTES S OFFICE [address] [facility] 7 7 MATA T VISIT 15 PHYSICIAN MINUTES S OFFICE [address] [facility] 6 6 MATA ABELARDO ELIDA T VISIT 15 PHYSICIAN MINUTES [facility] - 6 6 [facility] OUTPATIEN MED [facility] T [facility] AUTHOR OFFICE [address] [facility] 6 6 MATA BETSY T VISIT 15 PHYSICIAN MINUTES [facility] - 6 6 [facility]ATA OUTPATIEN T [facility] EDGE OFFICE 60457 [facility]I OUTPATIEN 6 6 MATA T VISIT 15 PHYSICIAN MINUTES [facility] - 6 6 MATA OUTPATIEN [facility] OFFICE [address] [facility] OUTPAT[facility] 6 6 MATA ABELARDO ELIDA T VISIT 15 PHYSICIAN MINUTES [facility] - 6 6 [facility] OUTPATIEN T [facility] EDGE OFFICE [address]14 [facility] 6 6 MATA BETSY T VISIT 25 PHYSICIAN MINUTES S OFFICE [address] [facility] OUT[facility] 6 6 MATA ABELARDO ELIDA T VISIT 25 PHYSICIAN MINUTES S HOME PERSONAL HE[facility], 5 5 TOUCH INPATIENT HOME CARE OF OFFICE [address]859 [facility] 5 5 MATA ABELARDO ELIDA T VISIT 15 PHYSICIAN MINUTES S HOME PERSONAL HEALTH, 5 5 TOUCH INPATIENT HOME CARE OF HOME PERSONAL HEALTH, 5 5 TOUCH INPATIENT HOME CARE OF OFFICE 55788 ATKINS ATKINS CONSULTAT 5 5 TRA TRA ION NEW/ESTAB PATIENT 40 MIN HOME PERSONAL HEALTH, 5 5 TOUCH INPATIENT HOME CARE OF [facility], 5 5 TOUCH INPATIENT HOME CARE OF HOME PERSONAL HEALTH, 5 5 TOUCH INPATIENT HOME CARE OF [facility] ST - 5 5 [facility] OUTPATIEN MED CTR T [facility] AUTHOR ST OFFICE [address]25 [facility] 5 5 MATA ZHOU ELIDA T VISIT 15 PHYSICIAN MINUTES S HOME PERSONAL HEALTH, 5 5 TOUCH INPATIENT HOME CARE OF HOME PERSONAL HEALTH, 5 5 TOUCH INPATIENT HOME CARE OF H[facility]PITAL ST - 5 5 MATA INPATIENT MED CTR [facility]IM[facility] AUTHOR ST OFFICE [address]8418 [facility] 5 5 MATA ZHOU ELIDA T VISIT 15 PHYSICIAN MINUTES S EMERGENCY [address] [facility] DEPT 5 5 EMERGENCY ELIO VISIT HIGH PHYSICIAN SEVERITY& S THREAT FUN OFFICE 64851 [facility] OUTPATIEN 5 5 MATA RETANAI T VISIT 15 PHYSICIAN MINUTES S OFFICE 86860 [facility] 5 5 MATA ZHOU ELIDA T VISIT 15 PHYSICIAN MINUTES S [facility] - 5 5 [facility] OUTPATIEN MED CTR T [facility] OFFICE 08529 [facility] 5 5 MATA ABELARDO ELIDA T VISIT 25 PHYSICIAN MINUTES S [facility] - 5 5 MATA OUTPATIEN MED CTR T MULTIMEDIA AUTHOR [facility] - 5 5 MATA OUTPATIEN MED CTR T [facility] AUTHOR OFFICE 20652 [facility] 5 5 MATA ZHOU ELIDA T VISIT 15 PHYSICIAN MINUTES S OFFICE 61593 [facility] 5 5 MATA ZHOU ELIDA T VISIT 25 PHYSICIAN MINUTES S OFFICE [address] [facility] 5 5 MATA ZHOU ELIDA T VISIT [address] [facility] - 5 5 [facility]ATA OUTPATIEN MED CTR T [facility] AUTHOR [facility] - 5 5 MATA INPATIENT MED CTR [facility] AUTHOR EMERGENCY 48609 [facility] DEPT 5 5 EMERGENCY WESLEY VISIT HIGH PHYSICIAN SEVERITY& S THREAT FUN OFFICE 69460 [facility] KERSCHNER OUTPATIEN 5 5 PAIN & MAG T VISIT SPINE 15 INSTIT MINUTES [facility]OSP[facility] - 4 4 [facility] OUTPATIEN INC T OFFICE 77400 RADHA LY OUTPATIEN 4 4 ALIYAH ABDUL LATIA T VISIT 25 MINUTES OFFICE 41484 FAMILY KEAGLE OUTPATIEN 4 4 CARE RIT T VISIT ASSOCIATE 15 S MINUTES INITIAL 58773 RADHA LY PREVENTIV 4 4 ALIYAH JEFFERY E MEDICINE NEW PATIENT 40-64YRS OFFICE 01698 [facility] OUTPATIEN 4 4 DELFIN DELFIN T VISIT 15 MINUTES OFFICE 13219 [facility] OUTPATIEN 4 4 DELFIN DELFIN T VISIT 5 MINUTES OFFICE 85395 [facility] OUTPATIEN 4 4 DELFIN DELFIN T VISIT 15 MINUTES OFFICE 44809 FAMILY JUSTUS J OUTPATIEN 4 4 CARE G T VISIT ASSOCIATE 15 S MINUTES OFFICE 51241 FAMILY OUTPATIEN 4 4 CARE T VISIT ASSOCIATE 15 S MINUTES OFFICE 08202 KEAGLE OUTPATIEN 4 4 RIT T VISIT 15 MINUTES [facility]OSPITAL [facility] - 4 4 GNOSTICIST OUTPATIEN HOSP T OFFICE 47259 BENSON BENSON OUTPATIEN 4 4 LATIA LATIA T NEW 45 MINUTES OFFICE 96762 MORGAN MORA OUTPATIEN 4 4 RIT RIT T VISIT 15 MINUTES OFFICE 59678 JUSTUS Vasquez OUTPATIEN 4 4 G G T VISIT [address] - 4 4 [facility] OUTPATIEN MED CTR T [facility] AUTHOR ST OFFICE 17365 JUSTUS Vasquez OUTPATIEN 4 4 G G T VISIT 15 MINUTES OFFICE 13181 JUSTUS Vasquez OUTPATIEN 4 4 G G T VISIT 15 MINUTES EMERGENCY 09107 [facility]ATA G[facility]O 4 4 ISABEL ISABEL DEPARTMEN T VISIT HIGH/URGE NT SEVERITY OFFICE 12981 DESJARDIN DESJARDIN CONSULTAT 3 3 S MAT S MAT ION NEW/ESTAB PATIENT 40 MIN OFFICE 85736 FAMILY JEROME OUTPATIEN 3 3 CARE SHIRLEY T VISIT ASSOCIATE 15 S MINUTES [facility]OSPITAL [facility] - 3 3 [facility] OUTPATIEN INC T OFFICE 62663 JUSTUS Vasquez OUTPATIEN 3 3 G G T VISIT 15 MINUTES OFFICE 18302 JUSTUS Vasquez OUTPATIEN 3 3 G G T VISIT 15 MINUTES OFFICE 87837 JUSTUS Vasquez OUTPATIEN 3 3 G G T VISIT 15 MINUTES OFFICE 29344 JULIANN HUMPHREYS OUTPATIEN 3 3 MELODY MELODY T NEW 30 MINUTES OFFICE 28570 JUSTUS ARANGOPATIEN 3 3 G G T VISIT 10 MINUTES OFFICE 96332 JUSTUS J OUTPATIEN 3 3 G T VISIT 15 MINUTES OFFICE 17593 PETTEMandy PETTEMandy OUTPATIEN 3 3 JAM JAM T NEW [address] [facility] OFF[facility] 90705 JUSTUS Vasquez OUTPATIEN 3 3 G G T VISIT 15 MINUTES OFFICE 29226 SALINAS SALINAS OUTPATIEN 3 3 JAQUAN JAQUAN T VISIT 10 MINUTES [facility]OSP[facility] - 3 3 [facility] OUTPATIEN INC T OFFICE 90656 SALINAS SALINAS OUTPATIEN 3 3 JAQUAN JAQUAN T NEW 20 MINUTES OFFICE 24059 MADIE MADIE OUTPATIEN 2 2 ROSALINA ROMANO MD T VISIT 15 MINUTES OFFICE 38462 JM ONEAL OUTPATIEN 2 2 R H R H T VISIT [address] - 2 2 [facility] EMERGENCY 74638 MARIA FERNANDA IRVING DEPT 2 2 DENISA DENISA VISIT HIGH SEVERITY& THREAT FUNJ
--- OUTSIDE RECORDS SUMMARY | 2017-07-21 22:22 | External Medical Summary Rpt | CCD ---
Author Author , VALENTIN Organization [facility] Address Unknown Phone Care Team Providers Care Machine Boss Name Role Phone SALINAS JAQUAN, SALINAS Unavailable [...] KATHERYN DEL, Unavailable Unavailable KATHERYN DEL [facility], Unavailable Unavailable [facility], Unavailable Unavailable [facility] JUSTUS J G, JUSTUS J Unavailable Unavailable G JUSTUS J G, JUSTUS J Unavailable Unavailable G JUSTUS SHIRLEY, JUSTUS Unavailable Unavailable SHIRLEY BRE MADI, Unavailable Unavailable BRE MADI BHANU MAT, Unavailable Unavailable BHANU MAT LATA ISABEL, LATA Unavailable Unavailable ISABEL BENSON LATIA, Unavailable Unavailable BENSON LATIA WENDY KEVIN, WENDY KEVIN Unavailable Unavailable [facility] Un[facility] Unavailable [place] [place] [facility] Unavailable Unavailable ASSOC[facility], [facility] [...] XIOMARA BOZENA [facility] Unavailable Unavailable [facility], [facility] SIGIFREDO NGUYEN, OD, Unavailable Unavailable [facility], SIGIFREDO NGUYEN, OD, PSC LINSEY MAR, LINSEY Unavailable Unavailable MAR KEAGLE RIT, KEAGLE Unavailable Unavailable RIT KEAGLE RIT, KEAGLE Unavailable Unavailable RIT MERLIN, MERLIN Unavailable Unavailable MERLIN CHR, MERLIN Unavailable Unavailable [facility] Unavailable Unavailable [facility], Unavailable Unavailable [...] CASTRO ABELARDO ELIDA, Unavailable Unavailable [facility]STR[facility] ABELARD[facility] Un[facility] Un[facility] Un[facility] Unavailable [facility], [facility] PETTEY JAM, PETTEY Unavailable Unavailable JAM PETTEY JAM, PETTEY Unavailable Unavailable J[facility], Unavailable Unavailable [facility], Unavailable Unavailable [facility] Unavailable Unavailable [facility], [facility] DAVIN CHR, Unavailable Unavailable DAVIN CHR MARIA [...] [facility] Unavailable Unavailable [facility], [facility], Unavailable Unavailable [facility] Unavailable BIOLOGY LABORATORY ASSISTANT ST, [facility] BI[facility] LABORATORY ASSISTANT [facility] Unavailable Unavailable CENTER, 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 NEOPLASM RESPIR ORGANS Z1231 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-19-2017 SCREENING [facility] MAMMO MALIG FT ROB NEOPLASM BREAST E210 PRIMARY 12-25-2016 HYPERPARATH [facility] YROIDISM FT ROB R32813 OTH SPEC 12-25-2016 RADIOLOGY D/O BONE [facility] DENSITY OF NOT STRUCTURE RT THIGH E559 VITAMIN D 10-22-2016 ST DEFICIENCY [facility] UNSPECIFIED [facility] R7303 PREDIABETES 10-22-2016 [facility] Z124 ENCOUNTER 10-22-2016 ST OTHER [facility] SCREENING HEALTHCARE MALIG [facility] NEOPLASM CERVIX H67018 ENCOUNTER 10-22-2016 ST FOR [facility] SCREENING HEALTHCARE [...] TRACT [facility] INFECTION PHYSICIANS SITE NOT SPECIFIED Q73092 OTHER 04-17-2016 ST SPECIFIED [facility] URINARY PHYSICIANS [...] HEMATURIA 01-21-2016 RADIOLOGY UNSPECIFIED ASSOCIATES OF NOT X81092 ACQUIRED 01-21-2016 ST ABSENCE OF [facility] BOTH [...] 4910 SIMPLE 05-07-2015 CHRONIC [facility] BRONCHITIS PHYSICIANS 91075 ESOPHAGEAL 05-07-2015 ST REFLUX [facility] PHYSIC[facility] 5849 ACUTE 05-07-2015 ST KIDNEY [facility] FAILURE PHYSICIANS UNSPECIFIED 07874 OTHER 05-07-2015 ABNORMAL [facility] GLUCOSE PHYSICIANS 57043 DIAB W/O 05-05-2015 PERSONAL COMP TYPE TOUCH [...] PERSONAL [place] [address] OBSTRUCTIVE 05-01-2015 INTERNAL CHRONIC MEDICINE OF BRONCHIT[place] 56772 SLOW 05-01-2015 INTERNAL TRANSIT MEDICINE [facility] 2449 UNSPECIFIED 04-24-2015 ST [facility] HYPOTHYROID PHYSICIANS ISM 53353 ACUTE 04-24-2015 ST BRONCHIOLIT [facility]ATA IS DUE OTH PHYSICIANS INFECTIOUS ORGANISMS 33391 CHEST PAIN 04-23-2015 RADIOLOGY UNSPECIFIED ASSOCIATES [facility] 52438 OTHER CHEST 04-23-2015 ST PAIN [facility] PHYSICIANS I10 Essential 04-22-2015 (primary) hypertensio n E03.8 Other 04-18-2015 specified hypothyroid ism 27221 LEUKOCYTOSI 04-18-2015 ST S [facility] UNSPECIFIED MED CTR BIOLOGY LABORATORY ASSISTANT ST 4139 OTHER AND 04-18-2015 ST UNSPECIFIED [facility] ANGINA MED CTR BIOLOGY LABORATORY [place]IST[place] [address] JAW PAIN 04-18-2015 ST [facility] BIOLOG[facility] [place] ST 86844 SHORTNESS 04-18-2015 ST OF BREATH [facility] PHYSICIANS 98192 OTHER 04-18-2015 ST DYSPNEA AND [place] [address] HYPOXEMIA 04-18-2015 ST [facility] PH[facility] 1330 SCABIES 04-04-2015 ST [facility] PHYSIC[facility] 2448 OTHER 03-19-2015 ST SPECIFIED [facility] ACQUIRED MED CTR BIOLOGY LABORATORY ASSISTANT HYPOTHYROID ST ISM 2468 OTHER 03-19-2015 ST SPECIFIED [facility] DISORDERS MED CTR BIOLOGY LABORATORY ASSISTANT OF THYROID ST 2689 UNSPECIFIED 02-19-2015 ST VITAMIN D [facility] DEFICIENCY PHYSICIANS 4770 ALLERGIC 02-19-2015 ST RHINITIS [facility]ATA DUE TO PHYSICIANS POLLEN 490 BRONCHITIS 02-19-2015 ST NOT [facility] SPECIFIED PHYSICIANS ACUTE OR CHRONIC 7231 CERVICALGIA 12-12-2014 [facility] 7241 PAIN IN 12-12-2014 [facility] THORACIC [facility] SPINE C CENTER 7248 OTHER 12-12-2014 [facility] SYMPTOMS [facility]IROP[facility] REFERABLE C CENTER TO BACK 4467 NONALLOPATH 12-12-2014 [facility] IC LESION [facility]IROP[facility]I OF CERVICAL C CENTER REGION NEC 0539 HERPES 11-24-2014 ST ZOSTER [facility] WITHOUT PHYSICIANS MENTION OF COMPLICATIO N 6829 CELLULITIS 11-24-2014 ST AND ABSCESS [facility] OF PHYSICIANS UNSPECIFIED SITE V4981 ASYMPTOMATI 10-20-2014 RAD[facility]Y C ASSOCIATES POSTMENOPAU OF [facility] TIARA STATUS 4739 UNSPECIFIED 10-09-2014 ST SINUSITIS [facility] PHYSICIANS 5990 URINARY 10-09-2014 ST TRACT [facility] INFECTION PHYSICIANS SITE NOT SPECIFIED E55.9 Vitamin D 09-26-2014 deficiency, unspecified 13140 OBESITY, 09-22-2014 ST UNSPECIFIED [facility] CTR BIOLOGY LABORATORY ASSISTANT ST 3331 ESSENTIAL 09-22-2014 ST AND OTHER [facility] SPECIFIED PHYSICIANS FORMS OF TREM[place] 7802 SYNCOPE AND 09-22-2014 ST COLLAPSE [facility] PHYSICIANS V700 ROUTINE 09-22-2014 GENERAL [facility]ICAL [facility]ICIANS EXAM@HEALTH CARE FACL 89802 OTHER 09-20-2014 ST SPECIFIED [facility] CARDIAC PHYSICIANS DYSRHYTHMIA S 7245 UNSPECIFIED 09-20-2014 ST BACKACHE [facility] PHYSICIANS G89.29 Other 09-18-2014 chronic pain J41.0 Simple 09-18-2014 chronic bronchitis J43.9 Emphysema, 09-18-2014 unspecified J44.1 Chronic 09-18-2014 obstructive pulmonary disease with (acute) exacerbatio n M54.5 Low back 09-18-2014 pain 89677 OTHER 09-17-2014 ST CHRONIC [facility] PAIN MED CTR BIOLOGY LABORAT[place] [facility] 08432 OTHER 09-17-2014 [place] [address] PRECORDIAL 09-17-2014 ST PAIN [facility] BIOLOGY LABORATORY ASSISTANT ST F41.8 Other 09-15-2014 specified anxiety disorders G25.0 Essential 09-15-2014 tremor 45878 PAIN IN 09-07-2014 [facility], PAIN & LOWER LEG SPINE INSTIT 7202 SACROILIITI 08-30-2014 [facility]ED S NOT PAIN & ELSEWHERE SPINE CLASSIFIED INSTIT 7213 LUMBOSACRAL 08-22-2014 [facility] PA[facility] & SPONDYLOSIS SPINE WITHOUT INSTIT MYELOPATHY 7210 CERVICAL 07-25-2014 [facility]ED SPONDYLOSIS PAIN & WITHOUT SPINE MYELOPATHY INSTIT 7244 THORACIC/EBER 07-14-2014 [facility] NEURITIS/RA C CENTER DICULITIS UNSPEC 7282 MUSCULAR 07-14-2014 [facility] DIS[facility] ATROPHY NEC 8460 SPRAIN AND 07-14-2014 [facility] STRAIN OF CHIROPRACTI LUMBOSACRAL C CENTER 8470 NECK SPRAIN 07-14-2014 [facility] STR[facility] CENTER 4589 UNSPECIFIED 07-13-2014 [facility] HYPOTENSION 6256 FEMALE 07-13-2014 RADHA LY MD INCONTINENC E 6272 SYMPTOMATIC 07-13-2014 RADHA LY MD MENOPAUSAL/ FEMALE CLIMACTERIC STATES 39625 OTHER 07-13-2014 [place] SPECIFIED MEDICAL DISORDERS IMAGING ASS OF LOWER LEG JOINT V0481 NEED 07-13-2014 [facility] PROPHYLACTI ASSOCIATES C VACCINATION &INOCULATIO N FLU 4660 ACUTE 06-20-2014 [facility] BRONCHITIS [facility] 6273 POSTMENOPAU 06-15-2014 RADHA Dillon TIARA ALIYAH ABDUL ATROPHIC VAGINITIS V7231 ROUTINE 06-15-2014 RADHA Dillon GYNECOLOGIC ALIYAH ABDUL AL EXAMINATION V7641 SCREENING 06-15-2014 RADHA LY MD MALIGNANT NEOPLASM OF THE RECTUM 66036 PREPATELLAR 04-28-2014 [facility] BURSITIS [facility]ATES 7810 ABNORMAL 04-28-2014 [facility] INVOLUNTARY ASS[facility] MOVEMENTS 22219 OTHER 04-20-2014 [facility] SPECIFIED ASSOCIATES TYPES OF CYSTITIS 1122 CANDIDIASIS 04-14-2014 KEAGLE RIT OF OTHER UROGENITAL SITES 7881 DYSURIA 04-14-2014 LAB SHAY [employer] 0088 INTESTINAL 10-19-2013 [facility] RIT INFECTION DUE TO OTHER ORGANISM NEC 58510 VERTIGO 10-19-2013 [facility] RIT LATE EFFECT CEREBROVASC ULAR DISEASE 463 ACUTE 10-07-2013 JUSTUS Godwin TONSILLITIS 64723 MASTODYNIA 09-22-2013 MARIA A CHAVA 50161 LUMP OR 09-22-2013 ST MASS IN [facility] CTR BIOLOGY LABORATORY ASSISTANT ST 7822 LOCALIZED 09-22-2013 ST SUPERFICIAL [facility] SWELLING MED CTR BIOLOGY LABORATORY ASSISTANT MASS OR ST [place] 53018 INCONCLUSIV 09-22-2013 ST E MAMMOGRAM [facility] CTR BIOLOGY LABORATORY ASSISTANT ST 7242 LUMBAGO 09-20-2013 LAB SHAY OF [employer] 460 ACUTE 07-01-2013 [facility] NASOPHARYNG ASSOCIATES ITIS 4400 ATHEROSCLER 06-11-2013 BRE OSIS OF MADI AORTA 7218 OTHER 06-11-2013 BRE ALLIED MADI DISORDERS OF SPINE 50059 OSTEOARTHRO 12-23-2012 PETTEY JAM SIS UNSPEC WHETHER GEN/LOC LOWER LEG 7177 CHONDROMALA 11-30-2012 PETTEY JAM DIXON OF [place] 75529 PLICA 11-30-2012 PETTEY JAM SYNDROME 81438 AFTER-CATAR 11-22-2012 THORNTON ACT, ALONZO OBSCURING VISION 89935 DISORDER OF 11-03-2012 [facility] UNSPECIFIED CENTER 3674 PRESBYOPIA 10-05-2012 SIGIFREDO NGUYEN, OD, PSC 5952 OTHER 10-05-2012 SALINAS JAQUAN CHRONIC CYSTITIS 5989 UNSPECIFIED 10-05-2012 SALINAS JAQUAN URETHRAL STRICTURE 04255 UNSPECIFIED 09-14-2012 [facility]RETHRITIS [facility] 4619 ACUTE 09-07-2012 JM R SINUSITIS, H UNSPECIFIED 37749 UNSPECIFIED 05-14-2012 MADIE ROMANO MD CONSTIPATIO N 39136 DYSPHAGIA 05-14-2012 MADIE UNSPECIFIED [place] ABDUL 38930 ABDOMINAL 05-14-2012 MADIE PAIN OTHER [place] ABDUL SPECIFIED SITE V1272 PERSONAL 04-18-2012 MADIE HISTORY OF [place] ABDUL COLONIC POLYPS 64341 OTHER 04-17-2012 MADIE ESOPHAGITIS [place] ABDUL 13341 OTHER SPEC 04-17-2012 MADIE GASTRITIS [place] ABDUL WITHOUT MENTION HEMORRHAGE 5589 OTH&UNSPEC 04-17-2012 MADIE NONINFECTIO [place] ABDUL US GASTROENTER ITIS&COLITI S 95551 UNSPECIFIED 04-16-2012 [facility] ESOPHAGITIS [facility] 20754 UNS 04-16-2012 GASTRITIS&G [facility] [place] ASTRODUODIT [facility] IS W/O CENTER MENTION HEMORR 76463 DIVERTICULO 04-16-2012 [facility] COLON [facility] 5641 IRRITABLE 04-16-2012 BOWEL [facility] [place] SYNDROME [facility] 85560 LOSS OF 04-16-2012 [facility] WEIGHT 42582 ABDOMINAL 04-16-2012 KUPER REDD PAIN, UNSPECIFIED SITE 5601 PARALYTIC 04-15-2012 DEENA ALLISON ILEUS 6259 UNSPEC 04-15-2012 DEENA ALLISON SYMPTOM ASSOC W/FEMALE GENITAL ORGANS 88684 ABDOMINAL 04-15-2012 DEENA COOPER PAIN, GENERALIZED 5959 UNSPECIFIED 12-26-2011 MARIA FERNANDA DENISA CYSTITIS 01932 NONSPECIFIC 12-26-2011 MARIA FERNANDA DENISA ABNORMAL ELECTROCARD [...] MA MG CY TA #5 BL ET IL 23 11 12 60 30 00 TO [...] 10 12 30 30 00 TO Ac IL 59 -2 -0 .0 00 TA ti [...] 50 7- 1- 00 00 L ve IL 61 20 20 96 CA IL 01 [...] 90 -1 -1 .0 00 TA ti SC 45 0- 0- 00 00 L ve [...] 82 6- 0- 00 00 L ve IL 07 20 20 94 CA IL 41 17 17 46 RE 0 09 10 PH AR MG MA CY TA BL #5 ET BU 00 09 10 30 30 00 TO IL 18 -2 -2 .0 00 TA ti [...] 90 -1 -0 .0 00 TA ti SC 45 1- 6- 00 00 L ve [...] MA CY 30 #5 MG CA P IL 23 09 10 60 30 00 TO [...] 82 8- 2- 00 00 L ve IL 07 20 20 94 CA IL 41 [...] 03 18 30 30 00 TO Ac IL 18 -2 -1 .0 00 TA ti [...] 90 -0 -0 .0 00 TA ti SC 45 9- 1- 00 00 L ve [...] 50 9- 8- 00 00 L ve IL 61 20 20 94 CA IL 01 17 17 46 RE 0 09 10 PH AR MG MA CY TA BL #5 ET BU 60 07 08 60 30 00 TO Ac IL 50 -1 -1 .0 00 TA ti OP 50 9- 8- 00 00 L ve IO 15 20 20 94 CA N 70 17 17 75 RE HC 1 75 L PH 10 AR 0 MA MG CY TA #5 BL ET IL 00 07 08 60 30 00 TO [...] 90 -1 -1 .0 00 TA ti SC 45 9- 4- 00 00 L ve N 98 20 20 94 CA D3 66 17 17 37 RE 0 41 5, PH 00 AR 0 MA UN CY IT #5 CA PS UL E BU 60 01 14 60 30 00 TO Ac IL 50 -1 -1 .0 00 TA ti [...] 50 2- 4- 00 00 L ve IL 61 20 20 94 CA IL 01 [...] 90 -2 -1 .0 00 TA ti SC 45 3- 6- 00 00 L ve N 98 20 20 94 CA D3 66 17 17 37 RE 0 41 5, PH 00 AR 0 MA UN CY IT #5 CA PS UL E LI 00 12 13 30 30 00 TO SI 18 -2 -1 .0 00 TA ti NO 50 3- 6- 00 00 L ve IL 61 20 20 94 CA IL 01 17 17 46 RE 0 09 10 PH AR MG MA CY TA BL #5 ET ME 23 05 60 30 00 TO Ac TF 15 -2 -1 .0 00 TA ti OR 50 4- 6- 00 00 L ve SC 10 20 20 93 CA N 21 17 17 30 RE HC 0 98 L PH 50 AR 0 MA MG CY TA #5 BL ET IL 00 05 06 60 30 00 TO [...] 90 -2 -1 .0 00 TA ti SC 45 5- 9- 00 00 L ve N 98 20 20 94 CA D3 66 17 17 37 RE 0 41 5, PH 00 AR 0 MA UN CY IT #5 CA PS UL E LI 00 04 01 06 30 00 TO SI 18 -2 -1 .0 00 TA ti NO 50 5- 9- 00 00 L ve IL 61 20 20 94 CA IL 01 [...] 50 7- 5- 00 00 L ve IL 61 20 20 94 CA IL 01 17 17 24 RE 0 31 10 PH AR MG MA CY TA BL #5 ET BU 00 04 05 60 30 00 TO Ac IL 78 -1 -0 .0 00 TA ti [...] 50 3- 4- 00 00 L ve SC 10 20 20 93 CA N 21 [...] 25 CY MC #5 G IN H IL 00 03 04 60 30 00 TO [...] 50 3- 7- 00 00 L ve IL 61 20 20 94 CA IL 01 [...] 90 -0 -1 .0 00 TA ti SC 45 6- 0- 00 00 L ve [...] 00 02 03 60 30 00 TO IL 78 -1 -1 .0 00 TA ti [...] TE CY 25 #5 MG TA B IL 00 01 02 60 30 00 TO [...] 50 8- 7- 00 00 L ve SC 10 20 20 93 CA N 21 17 17 30 RE HC 0 98 L PH 50 AR 0 MA MG CY TA #5 BL ET LI 00 01 02 30 30 00 TO Ac SI 18 -1 -1 .0 00 TA ti NO 50 6- 7- 00 00 L ve IL 61 20 20 93 CA IL 01 [...] 17 17 90 RE E 6 86 IL PH OP AR MA 50 CY MC [...] 90 -0 -2 .0 00 TA ti SC 45 4- 7- 00 00 L ve [...] 50 4- 9- 00 00 L ve IL 61 20 20 93 CA IL 01 16 17 55 RE 0 02 10 PH AR MG MA CY TA BL #5 ET BU 00 12 01 60 30 00 TO Ac IL 78 -1 -0 .0 00 TA ti [...] DOS [place] [address] [facility] YRONINE T3 FREE [facility] [address] [facility] FREE [address] [place] [address] THYROXINE HEALTH[place] [address] [facility] THYROID 7 [facility] STIMULATI NG HEALTHCAR HEALTHCAR HORMONE E EDGE E EDGE TSH COMPREHEN 54599 [facility] SIVE [address] [place] [address] METABOLIC PANEL HEALTHCAR HEALTHCAR E EDGE E EDGE COLLECTIO 76683 [facility] N VENOUS 7 [facility] BLOOD VENIPUNCT [place]ALTH[place] [address] [facility] INFUSION 7 [facility] THERAPY/P ROPHYLAXI HEALTHCAR HEALTHCAR S /DX 1ST E EDGE E EDGE TO 1 HR INJECTION J3489 [address] ZOLEDRONI C ACID 1 HEALTHCAR HEALTHCAR MG E EDGE E EDGE BASIC [address] NOTA METABOLIC [address] [place] [address] CALCIUM HEALTHCAR TOTAL E EDGE PLETHYSMO 11420 [facility] GRAPHY [address] [place] [address] LUNG MED CTR VOLUMES W/WO AIRWAY RESIST SCREENING 96062 RADIOLOGY KLEIMEYER 7 MAMMOGRAP ASSOCIATE HY BI S [facility] 2[place] [address] [facility] DIFFUSING 7 MATA CAPACITY MED CTR LOW DOSE G[address] SCAN 7 FOR LUNG ASSOCIATE CANCER S OF [facility] SCREENING BRNCDILAT 76876 [facility] RSPSE 7 MATA SPMTRY MED CTR PRE&POST- BRNCDILAT ADMN SCREENING G0202 [facility] 7 MATA MATA MAMMOGRAP FT FT HY ZULY ROB ROB INCL CAD WHEN PERFORMD DXA BONE 37812 RADIOLOGY [place] DENSITY 7 STUDY 1/> ASSOCIATE SITES S OF [facility] AXIAL SKEL ACUTE 12800 [facility] HEPATITIS 7 MATA AUGUST PANEL HEALTHCAR HEALTHCAR E EDGE E EDGE COMPREHEN 89016 [facility] SIVE 7 MATA AUGUST METABOLIC PANEL HEALTHCAR HEALTHCAR E EDGE E EDGE BLOOD 16711 [facility] COUNT 7 MATA AUGUST COMPLETE AUTO&AUTO HEALTHCAR HEALTHCAR DIFRNTL E EDGE E EDGE WBC LIPID 80592 [facility] PANEL 7 MATA AUGUST [place] [address] [facility] THYROID 7 MATA AUGUST STIMULATI NG HEALTHCAR HEALTHCAR [place] [address] [facility] FREE 7 MATA AUGUST THYROXINE HEALTHCAR HEALTHCAR E EDGE E EDGE HEMOGLOBI 80581 [facility] N 7 MATA AUGUST GLYCOSYLA RYLEY A1C [place] [address] [facility] TRIIODOTH 7 MATA AUGUST YRONINE T3 FREE HEALTHCAR HEALTHCAR E EDGE E EDGE IADNA 09433 [facility] HUMAN 7 MATA AUGUST PAPILLOMA VIRUS HEALTHCAR HEALTHCAR HIGH-RISK E EDGE E EDGE TYPES 25 54455 [facility] HYDROXY 7 MATA AUGUST INCLUDES FRACTIONS HEALTHCAR HEALTHCAR IF E EDGE E EDGE PERFORMED CYTP C/V [address] AUTO THIN 7 MAT[place]ORA AUGUST LYR PREPJ SCR HEALTHCAR HEALTHCAR MNL E EDGE E EDGE RESCR PHYS CULTURE [address] BACTERIAL 6 MATA [facility] MED CTR MED CTR QUANTTATI BIOLOGY LABORATORY ASSISTANT ST BIOLOGY LABORATORY ASSISTANT ST VE COLONY COUNT URINE CT THORAX [address] W/O 6 MATA MATA CONTRAST MATERIAL [place] [address] ABDOMEN & 6 MATA MATA PELVIS FT FT W/O [facility] CONTRAST MATERIAL COMPUTER- [address] AIDED 6 MATA MATA DETECTION HEALTHCAR HEALTHCAR SCREENING E EDGE E EDGE MAMMOGRAP HY SCREENING G0202 RADIOLOGY ROEBKER 6 JAM MAMMOGRAP ASSOCIATE HY ZULY S OF NOTH INCL CAD WHEN PERFORMD SCREENING [address] 6 MATA MATA MAMMOGRAP HY HEALTHCAR HEALTHCAR BILATERAL E EDGE E EDGE IAADIADOO [address] ST CASTRO 6 MATA ZHOU [place] INFLUENZA PHYSICIAN S IAADIADOO [address]30[address] ST CASTRO 6 MATA ZHOU [place] STREPTOCO CCUS PHYSICIAN GROUP A S INJECTION J1040 ST SMITH 6 MATA MEYER METHYLPRE DNISOLONE PHYSICIAN ACETATE S [address] SMITH IC 6 MATA BETSY PROPHYLAC TIC/DX PHYSICIAN INJECTION S SUBQ/IM INJ J0702 ST SMITH BETAMETHA 6 MATA BETSY SONE ACETATE & PHYSICIAN S PHOSPHATE 3 MG NONEMERGE A0100 LKLP CAC KELSIES NCY 5 INC TRANSPORT TRANSPORT REGION 9 ATION CO ATION; L TAXI DIRECT G0154 PERSONAL PERSONAL SKILL 5 TOUCH TOUCH NURSE HOME SKILLED NURSING CARE SERVICES OF OF HH/HOSPIC E EA 15 MIN DIRECT G0154 PERSONAL PERSONAL SKILL 5 TOUCH TOUCH NURSE HOME SKILLED NURSING CARE SERVICES OF OF HH/HOSPIC E EA 15 MIN SERVICE G0151 PERSONAL PERSONAL PHYS 5 TOUCH TOUCH THERAP HOME SKILLED NURSING SKILLED NURSING OF OF HLTH/HOSP ICE EA 15 MIN NONEMERGE A0100 LKLP CAC LAVERNENETTS NCY 5 INC TRANSPORT TRANSPORT REGION 9 ATION CO ATION; L TAXI DIRECT G0154 PERSONAL PERSONAL SKILL 5 TOUCH TOUCH NURSE HOME SKILLED NURSING CARE SERVICES OF OF HH/HOSPIC E EA 15 MIN DIRECT G0154 PERSONAL PERSONAL SKILL 5 TOUCH TOUCH NURSE HOME SKILLED NURSING CARE SERVICES OF OF HH/[place] 15 [place] [address] SCALF LEI SCALF LEI SURG 5 PATHOLOGY GROSS&DENISA ROSCOPIC EXAM IMHISTOCH 90951 SCALF LEI SCALF LEI EM/CYTCHM 5 1ST ANTIBODY STAIN PROCEDURE CUL BACT 24652 QUEST QUEST XCPT 5 DIAGNOSTI DIAGNOSTI URINE CS CS BLOOD/STO OL AEROBIC ISOL DESTRUCTI 44334 ATKINS ATKINS ON BENIGN 5 TRA TRA LESIONS UP TO 14 SHVG SKIN 28851 ATKINS ATKINS LESION 1 5 TRA TRA TRUNK/ARM /LEG DIAM 0.6-1.0 CM SERVICE G0151 PERSONAL PERSONAL PHYS 5 TOUCH TOUCH THERAP HOME SKILLED NURSING SKILLED NURSING OF OF HLTH/HOSP ICE EA 15 MIN SERVICE G0151 PERSONAL PERSONAL PHYS 5 TOUCH TOUCH THERAP HOME SKILLED NURSING SKILLED NURSING OF OF HLTH/HOSP ICE EA 15 MIN DIRECT G0154 PERSONAL PERSONAL SKILL 5 TOUCH TOUCH NURSE HOME SKILLED NURSING CARE SERVICES OF OF HH/HOSPIC E EA 15 MIN SERVICE G0151 PERSONAL PERSONAL PHYS 5 TOUCH TOUCH THERAP HOME SKILLED NURSING SKILLED NURSING OF OF HLTH/HOSP ICE EA 15 MIN SERVICE G0151 PERSONAL PERSONAL PHYS 5 TOUCH TOUCH THERAP HOME SKILLED NURSING SKILLED NURSING OF OF HLTH/HOSP ICE EA 15 MIN DIRECT G0154 PERSONAL PERSONAL SKILL 5 TOUCH TOUCH NURSE HOME SKILLED NURSING CARE SERVICES OF OF HH/HOSPIC E EA [address] METABOLIC 5 MATAJES AUGUST PANEL MED CTR MED CTR CALCIUM BIOLOGY LABORATORY ASSISTANT ST BIOLOGY LABORATORY ASSISTANT ST TOTAL DIRECT G0154 PERSONAL PERSONAL SKILL 5 TOUCH TOUCH NURSE HOME SKILLED NURSING CARE SERVICES OF OF HH/HOSPIC E EA 15 MIN SERVICE G0151 PERSONAL PERSONAL PHYS 5 TOUCH TOUCH THERAP HOME SKILLED NURSING SKILLED NURSING OF OF HLTH/HOSP ICE EA 15 MIN DIRECT G0154 PERSONAL PERSONAL SKILL 5 TOUCH TOUCH NURSE HOME SKILLED NURSING CARE SERVICES OF OF HH/HOSPIC E EA 15 MIN PHYS CERT G0180 ST CASTR[facility] MCR-COVR 5 MATA ZHOU [place] [facility] SRVC PER PHYSICIAN CERT PRD [facility] 50261 INTERNAL DAVIN DISCHARGE 5 MEDICINE CHR DAY OF MANAGEMEN [place] T > 30 MIN SBSQ [id number] INTERNAL [facility] 5 MEDICINE CARE/DAY OF 25 [place] MINUTES SBSQ [id number] INTERNAL [facility] 5 MEDICINE CARE/DAY OF 25 [place] MINUTES SBSQ 01355 INTERNAL [facility] 5 MEDICINE CARE/DAY OF 25 [place] MINUTES SBSQ 37820 INTERNAL [facility] 5 MEDICINE CARE/DAY OF 25 [place] MINUTES SBSQ [address]441 [place] [address] MATA MELODY CARE/DAY 25 PHYSICIAN MINUTES S ECG [address] [facility] ROUTINE 5 MATA DEL ECG MED CTR W/LEAST 12 LDS I&R ONLY ECG [address] [facility] ROUTINE 5 MATA DEL ECG MED CTR W/LEAST 12 LDS I&R ONLY SBSQ 17985 [place] [address] MATA MELODY CARE/DAY 25 PHYSICIAN MINUTES S SBSQ 40834 [place] [address] MATA IRF CARE/DAY 35 PHYSICIAN MINUTES S INITIAL 66912 [facility] INPATIENT 5 MATA CONSULT NEW/ESTAB PHYSICIAN PT 55 S MIN SBSQ 60753 [place] [address] MATA MELODY CARE/DAY 25 PHYSICIAN MINUTES S SBSQ 18965 [place] [address] MATA PEDRO CARE/DAY 25 PHYSICIAN MINUTES S SBSQ 60928 [place] [address] MATA MELODY CARE/DAY 25 PHYSICIAN MINUTES S SBSQ 61701 [place] [address] MATA CHER CARE/DAY 35 PHYSICIAN MINUTES S INITIAL 75552 [facility] INPATIENT 5 MATA CHER CONSULT NEW/ESTAB PHYSICIAN PT 80 S MIN SBSQ 49226 [facility] 5 MATA MELODY CARE/DAY 25 PHYSICIAN MINUTES S RADIOLOGI 25759 RADIOLOGY [facility] C EXAM 5 SAMUEL CHEST 2 ASSOCIATE VIEWS S OF NOTH FRONTAL&L ATERAL INITIAL 23422 [place] [address] MATA MELODY CARE/DAY [address] [place] [address] TRIIODOTH 5 MATA MATA YRONINE MED CTR MED CTR T3 FREE BIOLOGY LABORATORY ASSISTANT ST [place] [address] FREE 5 MATA MATA THYROXINE MED CTR MED CTR BIOLOGY LABORATORY ASSISTANT ST [place] [address] THYROID 5 MATA MATA STIMULATI MED CTR MED CTR NG BIOLOGY LABORATORY ASSISTANT ST BIOLOGY LABORATORY ASSISTANT ST HORMONE TSH RADIOLOGI 84013 RADIOLOGY [facility]ER C EXAM 5 XAVIER CHEST 2 ASSOCIATE VIEWS S OF NOTH FRONTAL&L ATERAL INJ J0702 [facility] BETAMETHA 5 MATA ZHOU ELIDA SONE ACETATE & PHYSICIAN S PHOSPHATE [address] IN[address] [facility] 5 MATA ABELARDO ELIDA METHYLPRE DNISOLONE PHYSICIAN ACETATE S [address] [facility] IC 5 MATA ABELARDO ELIDA PROPHYLAC TIC/DX PHYSICIAN INJECTION S SUBQ/IM [address] HYDROXY 5 MATA MATA INCLUDES MED CTR MED CTR FRACTIONS BIOLOGY LABORATORY ASSISTANT ST BIOLOGY LABORATORY [place] [address] TRIIODOTH 5 MATA MATA YRONINE MED CTR MED CTR T3 FREE BIOLOGY LABORATORY ASSISTANT ST BIOLOGY LABORATORY ASSISTANT ST HEMOGLOBI [address] N 5 MATA MATA GLYCOSYLA MED CTR MED CTR RYLEY A1C BIOLOGY LABORATORY ASSISTANT ST BIOLOGY LABORATORY ASSISTANT ST [place] OF [address] THYROID 5 MATA MATA STIMULATI MED CTR MED CTR NG BIOLOGY LABORATORY ASSISTANT ST BIOLOGY LABORATORY [place] [address] FREE 5 MATA MATA THYROXINE MED CTR MED CTR BIOLOGY LABORATORY ASSISTANT ST BIOLOGY LABORATORY ASSISTANT ST COMPREHEN [address] SIVE 5 MATA AUGUST METABOLIC MED CTR MED CTR PANEL BIOLOGY LABORATORY ASSISTANT ST BIOLOGY LABORATORY ASSISTANT ST BLOOD [address] COUNT 5 MATA AUGUST COMPLETE MED CTR MED CTR AUTO&AUTO BIOLOGY LABORATORY ASSISTANT ST BIOLOGY LABORATORY ASSISTANT ST DIFRNTL WBC COLLECTIO 59505 ST CASTRO N VENOUS 5 MATA ZHOU [place] BLOOD VENIPUNCT PHYSICIAN URE S LIPID [address] PANEL 5 MATA AUGUST MED CTR MED CTR BIOLOGY LABORATORY ASSISTANT ST BIOLOGY LABORATORY ASSISTANT ST CHIROPRAC 82997 CHUN ALY TIC 5 CHIROPRAC GAR MANIPULAT TIC NAEL TX CENTER SPINAL 1-2 REGIONS CHIROPRAC 68627 CHUN ALY TIC 5 CHIROPRAC GAR MANIPLTV TIC TX CENTER EXTRASPIN AL 1/> REGION APPL 65851 CHUN ALY MODALITY 5 CHIROPRAC GAR 1/> AREAS TIC ELEC CENTER STIMJ UNATTENDE D APPL 55483 CHUN ALY MODALITY 5 CHIROPRAC GAR 1/> AREAS [place] [address] CHUN ALY 1/> AREAS 5 CHIROPRAC GAR EACH 15 TIC MINUTES CENTER MASSAGE APPLICATI 32488 CHUN ALY ON 5 CHIROPRAC GAR MODALITY TIC 1/> AREAS CENTER HOT/COLD PACKS THERAPEUT 17636 ST CASTRO IC 5 MATA ZHOU [place] PROPHYLAC TIC/DX PHYSICIAN INJECTION S SUBQ/IM INJECTION J1030 ST [facility]STR[facility] 5 MATA ZHOU [place] METHYLPRE DNISOLONE PHYSICIAN ACETATE S 40 MG DXA BONE 25535 RADIOLOGY MERLIN DENSITY 5 CHR STUDY ASSOCIATE 1/>SITES S OF NOTH APPENDICL R SKEL DXA BONE 36257 RADIOLOGY MERLIN DENSITY 5 CHR STUDY 1/> ASSOCIATE SITES S OF NOTH AXIAL SKEL TRANSITIO 42708 ST CASTRO NAL CARE 5 MATA ZHOU [place] MANAGE SRVC 14 PHYSICIAN DAY S DISCHARGE COMPREHEN [address] SIVE 5 MATA AUGUST METABOLIC MED CTR MED CTR PANEL BIOLOGY LABORATORY ASSISTANT ST BIOLOGY LABORATORY ASSISTANT ST COLLECTIO 50772 ST CASTRO N VENOUS 5 MATA ZHOU [place] BLOOD VENIPUNCT PHYSICIAN URE S BLOOD [address] COUNT 5 MATA MATA COMPLETE MED CTR MED CTR AUTO&AUTO BIOLOGY LABORATORY ASSISTANT ST BIOLOGY LABORATORY ASSISTANT ST DIFRNTL WBC [address] HYDROXY 5 MATA MATA INCLUDES MED CTR MED CTR FRACTIONS BIOLOGY LABORATORY ASSISTANT ST BIOLOGY LABORATORY ASSISTANT ST IF PERFORMED HEMOGLOBI [address] N 5 MATA MATA GLYCOSYLA MED CTR MED CTR RYLEY A1C BIOLOGY LABORATORY ASSISTANT ST BI[place] [address] THYROID 5 MATA AUGUST STIMULATI MED CTR MED CTR NG BIOLOGY LABORATORY ASSISTANT ST BIOLOGY LABORATORY ASSISTANT ST HORMONE TSH SBSQ 73896 [facility] 5 MATA MELODY CARE/DAY 25 PHYSICIAN MINUTES S SBSQ 14965 [facility] 5 MATA BOZENA CARE/DAY 25 PHYSICIAN MINUTES S ECHO 29310 [facility] TTHRC R-T 5 MATA MAR 2D W/WOM-MOD PHYSICIAN E COMPL S SPEC&COLR D INITIAL 11221 [facility] INPATIENT 5 MATA DANNA CONSULT NEW/ESTAB PHYSICIAN PT 80 S MIN MYOCARDIA 56846 [facility] SPECT 5 MATA MULTIPLE STUDIES PHYSICIAN S ECG 95278 [facility] CHR ROUTINE 5 MATA ECG MED CTR W/LEAST 12 LDS I&R ONLY CV STRS 37474 ST [facility] TST 5 MATA DAM XERS&/OR RX CONT PHYSICIAN ECG I&R S ONLY DUPLEX 61050 [facility] SCAN 5 MATA MELODY EXTRACRAN MED CTR IAL ART COMPL BI STUDY CV STRS 93030 ST [facility] TST 5 MATA DAM XERS&/OR RX CONT PHYSICIAN ECG W/O S I&R INITIAL 82027 [facility] 5 MATA MELODY CARE/DAY 70 PHYSICIAN MINUTES S RADIOLOGI 41007 RADIOLOGY COLIN C 5 MAR EXAMINATI ASSOCIATE ON CHEST S OF NOTH SINGLE VIEW FRONTAL GROUND A0425 [facility] DELCIDLETON MILEAGE 5 CO CO PER AMBULANCE AMBULANCE STATUTE TAXIN TAXIN MILE ECG 69775 ST [facility] CHR ROUTINE 5 MATA ECG MED CTR W/LEAST 12 LDS I&R ONLY AMB A0427 [facility] SERVICE 5 CO CO ALS AMBULANCE AMBULANCE EMERGENCY TAXIN TAXIN TRANSPORT LEVEL 1 ARTHROCEN 06760 [facility] TESIS 5 PAIN & URUGAN ASPIR&/IN SPINE HEM J MAJOR INSTIT JT/BURSA W/O US FLUOROSCO 31205 [facility] PIC 5 PAIN & URUGAN GUIDANCE SPINE HEM [place] IN[place] [address] [facility] JOINT 5 PAIN & MAG ARTHRGRPH SPINE Y&/ANES/S INSTIT TEROID W/TIFFANIE NJX 01409 [facility] DX/THER 4 PAIN & MAG AGT PVRT SPINE FACET JT INSTIT CRV/THRC 3+ LEVEL NJX 71017 [facility] DX/THER 4 PAIN & MAG AGT PVRT SPINE FACET JT INSTIT CRV/THRC 1 LEVEL NJX 97234 [facility] DX/THER 4 PAIN & MAG AGT PVRT SPINE FACET JT INSTIT CRV/THRC 2ND LEVEL DSTR 84497 [facility] NROLYTC 4 PAIN & MAG AGNT SPINE PARVERTEB INSTIT FCT SNGL LMBR/SACR AL DSTR 03602 [facility] NROLYTC 4 PAIN & MAG AGNT SPINE PARVERTEB INSTIT FCT ADDL LMBR/SACR AL CHIROPRAC 77872 CHUN LYON TIC 4 CHIROPRAC LUCÍA MANIPULAT TIC NAEL TX CENTER SPINAL 1-2 REGIONS IIV3 88461 FAMILY FAMILY VACCINE 4 CARE CARE SPLIT ASSOCIATE ASSOCIATE VIRUS 0.5 S S ML DOSAGE IM USE RADIOLOGI 42211 XIAO Hollins 4 [facility] EXAMINATI INC INC ON KNEE 3 VIEWS DSTR 06519 [facility] NROLYTC 4 PAIN & MAG AGNT SPINE PARVERTEB INSTIT FCT SNGL LMBR/SACR AL DSTR 57830 [facility] NROLYTC 4 PAIN & MAG AGNT SPINE PARVERTEB INSTIT FCT ADDL LMBR/SACR AL NJX 12060 [facility] DX/THER 4 PAIN & MAG AGT PVRT SPINE FACET JT INSTIT LMBR/SAC 1 LEVEL NJX 61075 [facility] DX/THER 4 PAIN & MAG AGT PVRT SPINE FACET JT INSTIT LMBR/SAC 2ND LEVEL BLOOD 75574 FAMILY FAMILY COUNT 4 CARE CARE COMPLETE ASSOCIATE ASSOCIATE AUTO&AUTO S S DIFRNTL WBC IADNA 89488 RADHA LY NEISSERIA 4 ALIYAH JEFFERY GONORRHOE AE DIRECT PROBE TQ CULTURE 62770 RADHA LY CHLAMYDIA 4 ALIYAH JEFFERY ANY SOURCE URINLS 10009 RADHA LY DIP 4 ALIYAH ABDUL LATIA STICK/TAB LET REAGNT NON-AUTO MICRSCPY BLOOD 84847 RADHA GARCIA R OCCULT 4 ALIYAH LY MD PEROXIDAS E ACTV QUAL FECES 1 DETER NJX 52575 [facility] DX/THER 4 PAIN & MAG AGT PVRT SPINE FACET JT INSTIT LMBR/SAC 2ND LEVEL NJX 76955 [facility] DX/THER 4 PAIN & MAG AGT PVRT SPINE FACET JT INSTIT LMBR/SAC 1 LEVEL APPL 70464 [facility] MODALITY 4 DELFIN DELFIN 1/> AREAS ELEC STIMJ UNATTENDE D CHIROPRAC 02652 [facility]UK[facility] TIC 4 DELFIN DELFIN MANIPULAT NAEL [place] SPINAL 1-2 REGIONS APPL 64239 [facility] MODALITY 4 DELFIN DELFIN 1/> AREAS ULTRASOUN D [place] [address] [place] [address] LUKING LUKING 1/> AREAS 4 DELFIN DELFIN EACH 15 [place] [address] LUKING LUKING 1/> AREAS 4 DELFIN DELFIN EACH 15 MINUTES MASSAGE APPL 22466 [facility] MODALITY 4 DELFIN DELFIN 1/> AREAS ULTRASOUN D EA 15 MIN APPLICATI 95379 [facility] ON 4 DELFIN DELFIN MODALITY 1/> AREAS HOT/[place] [address] LUKING LUKING 1/> AREAS 4 DELFIN DELFIN EACH 15 MIN NEUROMUSC REEDUCA THERAPEUT 41663 [facility] [place] IC PX 1/> 4 DELFIN DELFIN AREAS EACH 15 MIN EXERCISES CHIROPRAC 25458 [facility] LUKING TIC 4 DELFIN DELFIN MANIPULAT NAEL [place] SPINAL 3-4 REGIONS APPL 94105 [facility]ING MODALITY 4 DELFIN DELFIN 1/> AREAS ELEC STIMJ UNATTENDE D APPL 38472 [facility]ING MODALITY 4 DELFIN DELFIN 1/> AREAS ELEC STIMJ UNATTENDE D CHIROPRAC 23667 [facility] LUKING TIC 4 DELFIN DELFIN MANIPULAT NAEL TX SPINAL 3-4 REGIONS APPL 21456 [facility] MODALITY 4 DELFIN DELFIN 1/> AREAS TRACTION MECHANICA L THERAPEUT 58810 [facility] [place] IC PX 1/> 4 DELFIN DELFIN AREAS EACH [place] [address] LUKING LUKING 1/> AREAS 4 DELFIN DELFIN EACH 15 MIN NEUROMUSC REEDUCA APPLICATI 91792 [facility] ON 4 DELFIN DELFIN MODALITY 1/> AREAS H[place] [address] LUKING LUKING 1/> AREAS 4 DELFIN DELFIN EACH 15 MINUTES MASSAGE ARTHROCEN 88498 FAMILY FAMILY TESIS 4 CARE CARE ASPIR&/IN ASSOCIATE ASSOCIATE J HAMZAH S Vivek GUERRERO/KAYA W/O US CULTURE 05442 LAB [facility] LAB [facility]AY BACTERIAL 4 [employer] HOLDINGS QUANTTATI VE COLONY COUNT URINE CYANOCOBA 94869 [facility] [place] [address] [facility] THYROID [facility] [place] [address] [facility] AMMONIA [facility] BLOOD 40102 MORGAN MORA COUNT 4 RIT RIT COMPLETE AUTO&AUTO DIFRNTL WBC INJECTION J2550 MORGAN LEVYE 4 RIT RIT PROMETHAZ INE HCL UP TO 50 MG THERAPEUT 05398 MORGAN MORA IC 4 RIT RIT PROPHYLAC TIC/DX INJECTION SUBQ/IM BLOOD 64835 JUSTUS Vasquez COUNT 4 G G COMPLETE AUTO&AUTO DIFRNTL WBC COLLECTIO 63252 JUSTUS Vasquez N 4 G G CAPILLARY BLOOD SPECIMEN IAADIADOO 51176 JUSTUS Vasquez 4 G G STREPTOCO CCUS GROUP A DIAGNOSTI G0204 MARIA A SAHA C 4 CHAVA CHAVA MAMMOGRAP HY INCL CAD WHEN PERF; BILAT COMPUTER- 44139 MARIA A SAHA AIDED 4 CHAVA CHAVA DETECTION DX MAMMOGRAP HY US BREAST 26990 MARIA A SAHA REAL 4 CHAVA CHAVA TIME W/IMAGE DOCUMENTA TION MAMMOGRAP [address] HY 4 MATA MATA BILATERAL MED CTR MED CTR BIOLOGY LABORATORY ASSISTANT ST BIOLOGY LABORATORY ASSISTANT ST URNLS DIP 92013 JUSTUS Vasquez 4 G G STICK/TAB LET RGNT NON-AUTO W/O MICRSCP COLLECTIO 89534 JUSTUS Vasquez N VENOUS 4 G G BLOOD VENIPUNCT URE COMPREHEN 35161 LAB SHAY LAB SHAY SIVE 4 OF ROHAN METABOLIC [employer] HOLDINGS PANEL HOLDINGS RADEX 86604 DESJARDIN DESJARDIN SPINE 3 S MAT S MAT LUMBOSACR AL 2/3 VIEWS RADEX 32706 XIAO XIAO SPINE 3 [facility] LUMBOSACR INC INC AL MINIMUM 4 VIEWS URNLS DIP 96428 JM JM 3 R H R H STICK/TAB LET RGNT NON-AUTO W/O MICRSCP CULTURE 85036 LAB SHAY LAB SHAY BCT 3 [facility] ISOL&PRSM HOLDINGS HOLDINGS PTV ID ISOLATE EA URINE CUL BACT 29417 LAB [facility] LAB SHAY AEROBIC 3 [employer] ADDL HOLD[employer] HOLDINGS METHS DEFINITIV E EA ISOL CULTURE 35649 LAB SHAY LAB SHAY BACTERIAL 3 [employer] HOLDINGS QUANTTATI VE COLONY COUNT URINE INFLUENZA 37893 JM JM VACC 3 R H R H IIV3 SPLIT VIRUS PRSRV FREE ID SUSCEPTIB 36968 LAB [facility] LAB SHAY LTY STDY 3 [facility] ANTIMICRB HOLDINGS HOLDINGS IAL MICRO/AGA R DILUTJ CHIROPRAC 47220 JULIANN HUMPHREYS TIC 3 MELODY MELODY MANIPULAT NAEL [place] SPINAL 3-4 REGIONS APPL 97226 JULIANN HUMPHREYS MODALITY 3 MELODY MELODY 1/> [place] [address] JULIANN JULIANN 1/> AREAS 3 MELODY MELODY EACH 15 MIN NEUROMUSC REEDUCA APPLICATI 06033 JULIANN JULIANN ON 3 MELODY MELODY MODALITY 1/> AREAS HOT/[place] [address] JULIANN JULIANN 1/> AREAS 3 MELODY MELODY EACH 15 MINUTES MASSAGE BLOOD 15669 JUSTUS Vasquez COUNT 3 G G COMPLETE AUTO&[place] [address] JULIANN JULIANN 1/> AREAS 3 MELODY MELODY EACH 15 MINUTES MASSAGE APPLICATI 76478 JULIANN JULIANN ON 3 MELODY MELODY MODALITY 1/> AREAS [place] [address] JULIANN JULIANN 1/> AREAS 3 MELODY MELODY EACH 15 MIN NEUROMUSC REEDUCA APPL 69247 JULIANN JULIANN MODALITY 3 MELODY MELODY 1/> AREAS ELEC STIMJ UNATTENDE D CHIROPRAC 99643 JULIANN HUMPHREYS TIC 3 MELODY MELODY MANIPULAT NAEL [place] SPINAL 3-4 REGIONS CHIROPRAC 71722 JULIANN HUMPHREYS TIC 3 MELODY MELODY MANIPULAT NAEL [place] SPINAL 3-4 REGIONS APPL 54596 JULIANN JULIANN MODALITY 3 MELODY MELODY 1/> AREAS ELEC STIMJ UNATTENDE D APPLICATI 00332 JULIANN JULIANN ON 3 MELODY MELODY MODALITY 1/> AREAS [place] [address] JULIANN JULIANN 1/> AREAS 3 MELODY MELODY EACH 15 MINUTES MASSAGE APPL 08580 JULIANN JULIANN MODALITY 3 MELODY MELODY 1/> AREAS ULTRASOUN D EA 15 MIN APPLICATI 21216 JULIANN JULIANN ON 3 MELODY MELODY MODALITY 1/> AREAS HOT/COLD PACKS APPL 64071 JULIANN JULIANN MODALITY 3 MELODY MELODY 1/> AREAS ELEC STIMJ UNATTENDE D CHIROPRAC 06289 JULIANN HUMPHREYS TIC 3 MELODY MELODY MANIPULAT NAEL TX SPINAL 3-4 REGIONS APPL 90799 JULIANN HUMPHREYS MODALITY 3 MELODY MELODY 1/> AREAS ELEC STIMJ UNATTENDE D APPLICATI 75763 JULIANN HUMPHREYS ON 3 MELODY MELODY MODALITY 1/> AREAS HOT/COLD PACKS APPL 14510 JULIANN HUMPHREYS MODALITY 3 MELODY MELODY 1/> AREAS ULTRASOUN D EA 15 MIN CHIROPRAC 23699 JULIANN HUMPHREYS TIC 3 MELODY MELODY MANIPULAT NAEL TX SPINAL 3-4 REGIONS BLOOD 22303 JUSTUS Vasquez COUNT 3 G G COMPLETE AUTO&[place] [address] [facility] [employer] BLOOD/URI 3 DIAGNOSTI DIAGNOSTI C ACID CS CS ARTHROCEN 38198 PETTEY PETTEY TESIS 3 JAM JAM ASPIR&/IN J MAJOR JT/BURSA W/O US HYALURONA J7325 PETTEY PETTEY N/DERIV 3 JAM JAM SYNVISC/S YNVISC-ON E IA INJ 1 MG ARTHROCEN 85836 PETTEY PETTEY TESIS 3 JAM JAM ASPIR&/IN J MAJOR JT/BURSA W/O US INJ J0702 PETTEY PETTEY BETAMETHA 3 JAM JAM SONE ACETATE & PHOSPHATE 3 MG POST-HEATHER 17125 [facility] THORNTON RACT 3 ALONZO ALONZO LASER SURGERY ANTINUCLE 60831 [facility] AR 3 DIAGNOSTI DIAGNOSTI ANTIBODIE CS CS S THOMAS RADIOLOGI 92786 [facility] C 3 MELVIN MELVIN EXAMINATI ON KNEE 3 VIEWS RHEUMATOI 87285 [facility] D FACTOR 3 DIAGNOSTI DIAGNOSTI QUANTITAT CS CS NAEL POST-HEATHER 78503 THORNTON THORNTON RACT 3 ALONZO ALONZO LASER SURGERY URNLS DIP 08130 SALINAS SALINAS 3 JAQUAN JAQUAN STICK/TAB LET RGNT NON-AUTO W/O MICRSCP OPHTH 50410 SIGIFREDO Knowles WENDY KEVIN MEDICAL 3 WENDY, XM&EVAL OD, PSC COMPRE NEW PT 1/> VST DETERMINA 41033 SIGIFREDO NGUYEN HERBERTH TION 3 WENDY, [place] [address] XIAO HAGEN INFUSION 3 [facility] THERAPY/P INC INC ROPHYLAXI S /DX 1ST TO 1 HR THERAPEUT 80579 XIAO HAGEN IC 3 [facility] INJECTION INC INC IV PUSH EACH NEW DRUG CYSTO 55483 BRAD SALINAS CALIBRATI 3 JAQUAN JAQUAN ON DILAT URTL STRIX/ALLISON NOSIS CYSTOURET 35623 XIAO HAGEN HROSCOPY 3 [facility] [place] [address] XIAO HAGEN INFUSION 3 [facility] THERAPY INC INC PROPHYLAX IS/DX EA HOUR INJECTION J2405 XIAO HAGEN 3 [facility] ONDANSETR INC INC ON HCL PER 1 MG ANES 39911 [facility] TRANSURET 3 ANESTH HRAL OF THE W/URETHRO BLUE CYSTOSCOP Y NOS SERVICES 24131 [facility] PROVIDED 3 R H R H OFFICE OTH/THN REG SCHED HOURS IAADIADOO 41533 [facility] 3 R H R H INFLUENZA URNLS DIP 54719 BRAD SALINAS 3 JAQUAN JAUQAN STICK/TAB LET RGNT NON-AUTO W/O MICRSCP URNLS DIP 12121 [facility] 2 R H R H STICK/TAB LET RGNT NON-AUTO W/O [facility] 38306 SUYAPA RAINEY DISCHARGE 2 DAY MANAGEMEN T 30 MIN/< SBSQ 59100 [facility] 2 ROSALINA ROMANO MD CARE/DAY 25 MINUTES SBSQ 81552 [facility] 2 CARE/DAY 25 MINUTES EGD 28457 MADIE RAMACHANDRAN TRANSORAL 2 ROSALINA ROMANO MD BIOPSY SINGLE/MU LTIPLE DILATION 12656 MADIE RAMACHANDRAN ESOPH 2 ROSALINA ROMANO MD UNGUIDED SOUND/CAROL GIE 1/MULT PASS DILATION [address] OF 2 [facility] CLOSED [address] [ENDOSCOP 2 [facility], [facility] 2001 BIOPSY OF CENTER CENTER LARGE INTESTINE CLOSED [address] BIOPSY OF 2 [facility]OPHAG[facility] [address] ASTRODUOD 2 [facility] ENOS[facility] CENTER CLOSED BIOPSY COLONOSCO 59167 MADIE GARZAENRY PY 2 ROSALINA ROMANO MD W/BIOPSY SINGLE/MU LTIPLE INITIAL 41520 [facility] 2 CARE/[place] [address] [place] [address] DEENA SHAFFER ABDOMEN & 2 ALLISON ALLISON PELVIS W/CONTRAS T MATERIAL INITIAL 39121 MADIE GARZAENRY INPATIENT 2 ROSALINA ROMANO MD CONSULT NEW/ESTAB PT 80 MIN RADEX 08851 DEENA SHAFFER ABDOMEN 2 ALLISON ALLISON COMPL W/DCBTS&/ ERC VIEWS CREATININ 59582 [facility] E BLOOD 2 DI[place] [address] [facility] UREA 2 DIAGNOSTI DIAGNOSTI NITROGEN CS CS QUANTITAT NAEL ECG 79405 MARIA FERNANDA IRVING ROUTINE 2 DENISA DENISA ECG W/LEAST 12 LDS I&R ONLY Encounters Encounter Start End Date Code Location Performer Type Date OFFICE 53357 [facility] 7 7 MATA T VISIT 25 PHYSICIAN MINUTES [facility] ST - 7 7 MATA OUTPATIEN T [facility] - 7 7 MATA OUTPATIEN T [facility] - 7 7 MATA OUTPATIEN [facility] - 7 7 MATA OUTPATIEN [facility] - 7 7 MATA OUTPATIEN [facility] [address] [facility] 7 7 MATA T VISIT 15 PHYSICIAN MINUTES S OFFICE [address]2038 [facility] 7 7 MATA T VISIT 15 PHYSICIAN MINUTES S OFFICE [address] [facility] 6 6 MATA ABELARDO EL[place] T VISIT 15 PHYSICIAN MINUTES [facility] ST - 6 6 MATA OUTPATIEN MED CTR T BIOLOGY LABORATORY ASSISTANT OFFICE 53723 [facility] 6 6 MATA BETSY T VISIT 15 PHYSICIAN MINUTES [facility] ST - 6 6 MATA OUTPATIEN T [facility] OFFICE 59155 [facility] OUTPAT[facility] 6 6 MATA T VISIT 15 PHYSICIAN MINUTES [facility] ST - [address] [facility] OFFICE [address] ST [facility]O OUTPATIEN 6 6 MATA ABELARDO [place]IDA T VISIT 15 PHYSICIAN MINUTES [facility] ST - 6 6 MATA OUTPATIEN T [facility] OFFICE 57808 [facility] 6 6 MATA BETSY T VISIT 25 PHYSICIAN MINUTES S OFFICE 67109 [facility] OUTPATIEN 6 6 MATA ABELARDO [place] T VISIT 25 PHYSICIAN MINUTES S [facility], 5 5 TOUCH INPATIENT HOME CARE OF OFFICE 60211 [facility] OUTPATIEN 5 5 MATA ABELARDO [place] T VISIT 15 PHYSICIAN MINUTES S HOME PERSONAL HEALTH, 5 5 TOUCH INPATIENT HOME CARE OF HOME PERSONAL HEALTH, 5 5 TOUCH INPATIENT HOME CARE OF OFFICE 21234 ATKINS ATKINS CONSULTAT 5 5 TRA TRA ION NEW/ESTAB PATIENT 40 MIN HOME PERSONAL HEALTH, 5 5 TOUCH INPATIENT HOME CARE OF HOME [facility]AL [facility], 5 5 TOUCH INPATIENT HOME CARE OF HOME PERSONAL HE[facility], 5 5 TOUCH INPATIENT HOME CARE OF [facility] ST - 5 5 MATA OUTPATIEN MED CTR T BIOLOGY LABORATORY ASSISTANT ST OFFICE 24656 [facility] 5 5 MATA ZHOU ELIDA T VISIT 15 PHYSICIAN MINUTES S HOME PERSONAL HEALTH, 5 5 TOUCH INPATIENT HOME CARE OF HOME PERSONAL HEALTH, 5 5 TOUCH INPATIENT HOME CARE OF [facility] ST - 5 5 MATA INPATIENT MED CTR BIOLOGY LABORATORY ASSISTANT ST OFFICE 85687 [facility] 5 5 MATA ZHOU [place] T VISIT 15 PHYSICIAN MINUTES S EMERGENCY 80586 [facility] DEPT 5 5 EMERGENCY ELIO VISIT HIGH PHYSICIAN SEVERITY& S THREAT FUN OFFICE 05106 [facility] OUT[facility] 5 5 MATA RETANAI T VISIT 15 PHYSICIAN MINUTES S OFFICE 34008 [facility] 5 5 MATA ZHOU [place] T VISIT 15 PHYSICIAN MINUTES S [facility] - 5 5 MATA OUTPATIEN MED CTR T BIOLOGY LABORATORY ASSISTANT ST OFFICE 20656 [facility] 5 5 MATA ABELARDO [place] T VISIT 25 PHYSICIAN MINUTES S [facility] - 5 5 MATA OUTPATIEN MED CTR T BIOLOGY LABORATORY ASSISTANT [facility] ST - 5 5 MATA OUTPATIEN MED CTR T BIOLOGY LABORATORY ASSISTANT OFFICE 69828 [facility] 5 5 MATA ZHOU [place]IDA T VISIT 15 PHYSICIAN MINUTES S OFFICE 42393 [facility] 5 5 MATA ZHOU [place] T VISIT 25 PHYSICIAN MINUTES S OFFICE 75189 [facility] 5 5 MATA ZHOU [place] T VISIT 25 PHYSICIAN [address] [facility] - 5 5 MATA OUTPATIEN MED CTR T BIOLOGY LABORATORY ASSISTANT [facility] - 5 5 MATA INPATIENT MED CTR BIOLOGY LABORATORY ASSISTANT EMERGENCY 29095 [facility] DEPT 5 5 EMERGENCY WESLEY VISIT HIGH PHYSICIAN SEVERITY& S THREAT FUN OFFICE 47527 [facility] OUTPATIEN 5 5 PAIN & MAG T VISIT SPINE 15 INSTIT MINUTES [facility] - 4 4 [facility] OUTPATIEN INC T OFFICE 20153 RADHA LY OUTPATIEN 4 4 ALIYAH ABDUL LATIA T VISIT 25 MINUTES OFFICE 93431 FAMILY KEAGLE OUTPATIEN 4 4 CARE RIT T VISIT ASSOCIATE 15 S MINUTES INITIAL 56844 RADHA LY PREVENTIV 4 4 ALIYAH JEFFERY E MEDICINE NEW PATIENT 40-64YRS OFFICE 28005 [facility] OUTPATIEN 4 4 DELFIN DELFIN T VISIT 15 MINUTES OFFICE 17630 [facility] OUTPATIEN 4 4 DELFIN DELFIN T VISIT 5 MINUTES OFFICE 03317 [facility] OUTPATIEN 4 4 DELFIN DELFIN T VISIT 15 MINUTES OFFICE 69510 FAMILY JUSTUS J OUTPATIEN 4 4 CARE G T VISIT ASSOCIATE 15 S MINUTES OFFICE 34667 FAMILY OUTPATIEN 4 4 CARE T VISIT ASSOCIATE 15 S MINUTES OFFICE 25232 [facility] OUTPATIEN 4 4 RIT T VISIT 15 MINUTES [facility] OFF[facility] 30162 [facility] BENSON OUTPATIEN 4 4 LATIA LATIA T NEW 45 MINUTES OFFICE 05003 MORGAN MORA OUTPATIEN 4 4 RIT RIT T VISIT 15 MINUTES OFFICE 53029 JUSTUS Vasquez OUTPATIEN 4 4 G G T VISIT [address] - 4 [facility] MATA OUTPATIEN MED CTR T BIOLOGY LABORATORY ASSISTANT ST OFFICE 10544 JUSTUS Vasquez OUTPATIEN 4 4 G G T VISIT 15 MINUTES OFFICE 86758 JUSTUS Vasquez OUTPATIEN 4 4 G G T VISIT 15 MINUTES EMERGENCY 07526 [facility] 4 4 ISABEL ISABEL DEPARTMEN T VISIT HIGH/URGE NT SEVERITY OFFICE 86449 DESJARDIN DESJARDIN CONSULTAT 3 3 S MAT S MAT ION NEW/ESTAB PATIENT 40 MIN OFFICE 28968 FAMILY JEROME OUTPATIEN 3 3 CARE SHIRLEY T VISIT ASSOCIATE 15 S MINUTES [facility] OFFICE 20020 JUSTUS Vasquez OUTPATIEN 3 3 G G T VISIT 15 MINUTES OFFICE 47603 JUSTUS Vasquez OUTPATIEN 3 3 G G T VISIT 15 MINUTES OFFICE 40955 JUSTUS Vasquez OUTPATIEN 3 3 G G T VISIT 15 MINUTES OFFICE 79901 JULIANN HUMPHREYS OUTPATIEN 3 3 MELODY MELODY T NEW 30 MINUTES OFFICE 81919 JUSTUS ARANGOPATIEN 3 3 G G T VISIT 10 MINUTES OFFICE 36255 JUSTUS J OUTPATIEN 3 3 G T VISIT 15 MINUTES OFFICE 03003 PETTEMandy PETTEMandy OUTPATIEN 3 3 JAM JAM T NEW [address] - 3 3 [facility] OFFICE 36128 JUSTUS Vasquez OUTPATIEN 3 3 G G T VISIT 15 MINUTES OFFICE 31331 SALINAS SALINAS OUTPATIEN 3 3 JAQUAN JAQUAN T VISIT 10 MINUTES [facility] T OFFICE 84444 SALINAS SALINAS OUTPATIEN 3 3 JAQUAN JAQUAN T NEW 20 MINUTES OFFICE 57883 MADIE MADIE OUTPATIEN 2 2 ROSALINA ROMANO MD T VISIT 15 MINUTES OFFICE 28708 JM ONEAL OUTPATIEN 2 2 R H R H T VISIT [address] - 2 2 [facility] EMERGENCY 21769 MARIA FERNANDA IRVING DEPT 2 2 DENISA DENISA VISIT HIGH SEVERITY& THREAT FUNJ
--- OUTSIDE RECORDS SUMMARY | 2017-07-21 22:24 | External Medical Summary Rpt | CCD ---
Author Author , VALENTIN Organization [employer] Address Unknown Phone [email or web address] Support Name Relationship Address Phone THORNTON, Next Of Kin Unknown Unavailable MARCELA Immunization Name Date Rout CVX Reac Dose Comm Prov Is Faci e tion ent ider Refu lity Give sed n Infl 10-0 88 999 Hist D200 No D200 uenz 1-20 ori 31 31 a, 17 al UF Info rmat ion - Sour ce Unsp ecif ied Infl 09-1 999 Hist D200 No D200 uenz 9-20 ori 31 31 a 17 al Nasa Info l UF rmat ion - Sour ce Unsp ecif ied Tdap 09-1 115 999 Hist D200 No D200 , 9-20 ori 31 31 Adso 17 al rbed Info rmat ion - Sour ce Unsp ecif ied Infl 10-1 88 999 Hist D200 No D200 uenz 0-20 ori 31 31 a, 16 al UF Info rmat ion - Sour ce Unsp ecif ied PCV1 11-1 133 999 Hist D200 No D200 3 2-20 ori 31 31 15 al Info rmat ion - Sour ce Unsp ecif ied Infl 11-1 141 999 Hist D200 No D200 uenz 2-20 ori 31 31 a, 15 al Seas Info onal rmat ion - Sour ce Unsp ecif ied PPV2 09-1 33 999 Hist 1005 No 1005 3 4-20 oric 00 00 15 al Info rmat ion - Sour ce Unsp ecif ied Zost 06-0 Intr 121 999 Hist D200 No D200 er 1-20 amus ori 31 31 13 cula al r Info rmat ion - Sour ce Unsp ecif ied
--- OUTSIDE RECORDS SUMMARY | 2017-07-21 22:24 | External Medical Summary Rpt | CCD ---
Author Author [employer] Organization [employer] Address Unknown Phone Unavailable Purpose Continuity of Care Document - through 2016
--- OUTSIDE RECORDS SUMMARY | 2017-07-21 22:24 | External Medical Summary Rpt ---
Author Author VALENTIN Win, VALENTIN Win Organization [employer] Address Unknown Phone Unavailable
--- OUTSIDE RECORDS SUMMARY | 2017-07-21 22:24 | External Medical Summary Rpt | CCD ---
Author Author , VALENTIN Organization [employer]ENTIN Address Unknown Phone [email or web address] Support Name Relationship Address Phone THORNTON, Next [...]
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
[2017-07-22] MEDS ORDERED: PREDNISONE 20MG20 MG PO (00:37)
[2017-07-22 00:44] VITALS: BP 162/62
--- NOTE | 2017-07-22 04:47 | RADIOLOGY REPORT PS360 ---
CHEST(2 VIEWS-NOT PORTABLE) HISTORY: C/O PAIN TO RIGHT LOWER RIBS, ORDERING PHYSICIAN: Jacklyn Kennedy MD PATIENT AGE: 62 years COMPARISON: 07/08/2011 FINDINGS: The cardiomediastinal silhouette and pulmonary vascularity are within normal limits. Hyperinflation with coarsening of bronchovascular markings and hyperlucency consistent with COPD. No lobar consolidation or collapse. No acute bony abnormalities. IMPRESSION: COPD, no change with no acute finding
--- NOTE | 2017-07-22 04:53 | RADIOLOGY REPORT PS360 ---
CT CHEST W/O CONTRAST HISTORY: CHEST PAIN ORDERING PHYSICIAN: Jacklyn Kennedy MD PATIENT AGE: 62 years TECHNIQUE: Helical acquisition obtained without contrast.. Axial, sagittal, and coronal reformatted images are generated and reviewed. COMPARISON: None FINDINGS: Calcified nodes present in the mediastinum. No evidence of aortic aneurysm. Pulmonary arteries incompletely evaluated without IV contrast. Centrilobular emphysema obstructive chronic bronchitis. Calcified granuloma right upper lobe centrally. Mild bronchial thickening. Atelectatic/fibrotic changes are present within the lingula. No lobar consolidation or collapse. No effusions or infiltrates. Upper abdominal images show prior cholecystectomy. Scattered small nodes are present in the retroperitoneum. Mild prominence of the common bile duct. There is a small amount of Gastrografin esophagus which may be seen with reflux. No acute bony anomalies. IMPRESSION: 1. Centrilobular emphysematous changes with obstructive chronic bronchitis. 2. Atelectasis or fibrosis within the lingula. 3. No acute finding. See above for detail
== END 2017-07-22 00:45 | disposition home or self-care (01) ==
LOC: ER 21:48
DX: R07.89 Other chest pain (principal)